=== PATIENT | female | born 1960 | race African-American/Black ===

== ENCOUNTER 2017-10-14 09:01 | Emergency (ER) | payer OTHER ==
[2017-10-14] MEDS ORDERED: SODIUM CHLORIDE 0.9% 2,000 ML IV STA (09:13)
[2017-10-14] MEDS ORDERED: KETOROLAC 30 MG/ML 1 ML VIAL IVP STA (09:13)
[2017-10-14] MEDS ORDERED: ONDANSETRON 4 MG/2 ML VIAL IVP STA (09:13)
--- NOTE | 2017-10-14 09:17 | ED ---
Abdominal Pain HPI - General Chief Complaint: Abdominal Pain Stated Complaint: abd pain; vomiting Time Seen by Provider: 10/14/17 09:09 Source: patient, RN notes reviewed Mode of arrival: wheelchair Limitations: no limitations - History of Present Illness Initial Comments: This is a 57-year-old female presents emergency Department chief complaint of abdominal pain, nausea vomiting diarrhea. Patient states symptoms started around 12 AM this morning. Patient states that she has diffuse abdominal pain with associated nausea vomiting or diarrhea. She denies any fevers or chills. Denies chest pain, shortness of breath, back pain, dysuria, hematuria. Patient states her diarrhea is watery. Denies any melena or hematochezia. She states her emesis is mostly bile at this time. No sick contacts. - Related Data Previous Rx's Medication Instructions Recorded Dicyclomine [Bentyl] 20 mg PO TID #30 tablet 10/14/17 Ibuprofen [Motrin] 600 mg PO Q8HR PRN #30 tab 10/14/17 Ondansetron Odt [Zofran Odt] 4 mg PO Q8HR PRN #10 tab 10/14/17 Allergies Allergy/AdvReac Type Severity Reaction Status Date / Time Penicillins Allergy Rash/Hives Verified 10/14/17 09:08 Sulfa (Sulfonamide Allergy Rash/Hives Verified 10/14/17 09:08 Antibiotics) Review of Systems ROS Statement: Those systems with pertinent positive or pertinent negative responses have been documented in the HPI. ROS Other: All systems not noted in ROS Statement are negative. Past Medical History Past Medical History: Diabetes Mellitus, Hypertension History of Any Multi-Drug Resistant Organisms: None Reported Past Surgical History: Breast Surgery, Hysterectomy Past Psychological History: No Psychological Hx Reported Smoking Status: Never smoker Past Alcohol Use History: None Reported Past Drug Use History: None Reported General Exam Limitations: no limitations General appearance: alert, in no apparent distress Head exam: Present: atraumatic, normocephalic, normal inspection Eye exam: Present: normal appearance, PERRL, EOMI. Absent: scleral icterus, conjunctival injection, periorbital swelling Respiratory exam: Present: normal lung sounds bilaterally. Absent: respiratory distress, wheezes, rales, rhonchi, stridor Cardiovascular Exam: Present: regular rate, normal rhythm, normal heart sounds. Absent: systolic murmur, diastolic murmur, rubs, gallop, clicks GI/Abdominal exam: Present: soft, tenderness, normal bowel sounds. Absent: distended, guarding, rebound, rigid Back exam: Absent: CVA tenderness (R), CVA tenderness (L) Skin exam: Present: warm, dry, intact, normal color. Absent: rash Course Vital Signs 10/14/17 09:05 Temperature 97.2 F L Pulse Rate 85 Respiratory 18 Rate Blood Pressure 151/82 O2 Sat by Pulse 99 Oximetry Medical Decision Making - Medical Decision Making 57-year-old female presented from for nausea vomiting diarrhea. Patient did have mildly elevated lactic acid minimal gap at this time. Patient's related to dehydration. She was given 2 L of fluid she does feel improved she does have some mild residual pain states is very minimal. CT was performed that shows evidence of enteritis no obvious obstruction or diverticulitis. There is evidence of cholelithiasis but normal liver enzymes. Patient will be discharged at this time with Bentyl and Zofran. Return parameters were discussed. - Lab Data Result diagrams: 10/14/17 09:13 10/14/17 09:13 Lab Results 10/14/17 10/14/17 10/14/17 Range/Units 09:13 09:13 09:13 WBC 5.7 (3.8-10.6) k/uL RBC 4.95 (3.80-5.40) m/uL Hgb 13.7 (11.4-16.0) gm/dL Hct 41.0 (34.0-46.0) % MCV 82.9 (80.0-100.0) fL MCH 27.7 (25.0-35.0) pg MCHC 33.4 (31.0-37.0) g/dL RDW 13.7 (11.5-15.5) % Plt Count 249 (150-450) k/uL Neutrophils % 79 % Lymphocytes % 17 % Monocytes % 3 % Eosinophils % 1 % Basophils % 0 % Neutrophils # 4.5 (1.3-7.7) k/uL Lymphocytes # 0.9 L (1.0-4.8) k/uL Monocytes # 0.1 (0-1.0) k/uL Eosinophils # 0.1 (0-0.7) k/uL Basophils # 0.0 (0-0.2) k/uL Sodium 139 (137-145) mmol/L Potassium 4.2 (3.5-5.1) mmol/L Chloride 105 (98-107) mmol/L Carbon Dioxide 19 L (22-30) mmol/L Anion Gap 15 mmol/L BUN 12 (7-17) mg/dL Creatinine 0.60 (0.52-1.04) mg/dL Est GFR (CKD-EPI)AfAm >90 (>60 ml/min/1.73 sqM) Est GFR (CKD-EPI)NonAf >90 (>60 ml/min/1.73 sqM) Glucose 221 H (74-99) mg/dL Plasma Lactic Acid Mckay 3.4 H* (0.7-2.0) mmol/L Calcium 10.1 (8.4-10.2) mg/dL Total Bilirubin 0.4 (0.2-1.3) mg/dL AST 18 (14-36) U/L ALT 17 (9-52) U/L Alkaline Phosphatase 105 (38-126) U/L Total Protein 7.3 (6.3-8.2) g/dL Albumin 4.3 (3.5-5.0) g/dL Amylase 91 (30-110) U/L Lipase 136 (23-300) U/L Urine Color Urine Appearance (Clear) Urine pH (5.0-8.0) Ur Specific [place] (1.001-1.035) Urine Protein (Negative) Urine Glucose (UA) (Negative) Urine Ketones (Negative) Urine Blood (Negative) Urine Nitrite (Negative) Urine Bilirubin (Negative) Urine Urobilinogen (<2.0) mg/dL Ur Leukocyte Esterase (Negative) Urine RBC (0-5) /hpf Urine WBC (0-5) /hpf Ur Squamous Epith Cells (0-4) /hpf Amorphous Sediment (None) /hpf Urine Bacteria (None) /hpf Urine Mucus (None) /hpf Acetone, Qual Negative (Negative) 10/14/17 Range/Units 10:20 WBC (3.8-10.6) k/uL RBC (3.80-5.40) m/uL Hgb (11.4-16.0) gm/dL Hct (34.0-46.0) % MCV (80.0-100.0) fL MCH (25.0-35.0) pg MCHC (31.0-37.0) g/dL RDW (11.5-15.5) % Plt Count (150-450) k/uL Neutrophils % % Lymphocytes % % Monocytes % % Eosinophils % % Basophils % % Neutrophils # (1.3-7.7) k/uL Lymphocytes # (1.0-4.8) k/uL Monocytes # (0-1.0) k/uL Eosinophils # (0-0.7) k/uL Basophils # (0-0.2) k/uL Sodium (137-145) mmol/L Potassium (3.5-5.1) mmol/L Chloride (98-107) mmol/L Carbon Dioxide (22-30) mmol/L Anion Gap mmol/L BUN (7-17) mg/dL Creatinine (0.52-1.04) mg/dL Est GFR (CKD-EPI)AfAm (>60 ml/min/1.73 sqM) Est GFR (CKD-EPI)NonAf (>60 ml/min/1.73 sqM) Glucose (74-99) mg/dL Plasma Lactic Acid Mckay (0.7-2.0) mmol/L Calcium (8.4-10.2) mg/dL Total Bilirubin (0.2-1.3) mg/dL AST (14-36) U/L ALT (9-52) U/L Alkaline Phosphatase (38-126) U/L Total Protein (6.3-8.2) g/dL Albumin (3.5-5.0) g/dL Amylase (30-110) U/L Lipase (23-300) U/L Urine Color Light Yellow Urine Appearance Cloudy H (Clear) Urine pH 8.5 H (5.0-8.0) Ur Specific [place] 1.011 (1.001-1.035) Urine Protein Negative (Negative) Urine Glucose (UA) 4+ H (Negative) Urine Ketones 1+ H (Negative) Urine Blood Negative (Negative) Urine Nitrite Negative (Negative) Urine Bilirubin Negative (Negative) Urine Urobilinogen <2.0 (<2.0) mg/dL Ur Leukocyte Esterase Small H (Negative) Urine RBC <1 (0-5) /hpf Urine WBC 2 (0-5) /hpf Ur Squamous Epith Cells <1 (0-4) /hpf Amorphous Sediment Occasional H (None) /hpf Urine Bacteria Rare H (None) /hpf Urine Mucus Rare H (None) /hpf Acetone, Qual (Negative) Disposition Clinical Impression: Enteritis, Cholelithiasis Disposition: HOME SELF-CARE Condition: Stable Instructions: Enteritis (ED) Additional Instructions: Please return to the Emergency Department if symptoms worsen or any other concerns. Prescriptions: Dicyclomine [Bentyl] 20 mg PO TID #30 tablet Ibuprofen [Motrin] 600 mg PO Q8HR PRN #30 tab PRN Reason: Pain Ondansetron Odt [Zofran Odt] 4 mg PO Q8HR PRN #10 tab PRN Reason: Nausea Referrals: Esthela Herring MD [STAFF PHYSICIAN] - 1-2 days Time of Disposition: 11:20
[2017-10-14 09:38] LABS: Basophils % (A) 0 %; Eosinophils # (A) 0.1 k/uL (0-0.7); Eosinophils % (A) 1 %; HGB 13.7 gm/dL (11.4-16.0); Lymphocytes # (A) 0.9 k/uL (1.0-4.8); Lymphocytes % (A) 17 %; MCH 27.7 pg (25.0-35.0); MCHC 33.4 g/dL (31.0-37.0); MCV 82.9 fL (80.0-100.0); Mean Platelet Volume 7.6; Monocytes # (A) 0.1 k/uL (0-1.0); Monocytes % (A) 3 %; Neutrophils # (A) 4.5 k/uL (1.3-7.7); Neutrophils % (A) 79 %; Platelet Count 249 k/uL (150-450); RBC 4.95 m/uL (3.80-5.40); RDW 13.7 % (11.5-15.5); WBC 5.7 k/uL (3.8-10.6)
[2017-10-14 09:40] LABS: ALT 17 U/L (9-52); AST 18 U/L (14-36); Albumin 4.3 g/dL (3.5-5.0); Alkaline Phosphatase 105 U/L (38-126); Amylase 91 U/L (30-110); Anion Gap 15 mmol/L; Blood Urea Nitrogen 12 mg/dL (7-17); Calcium 10.1 mg/dL (8.4-10.2); Carbon Dioxide 19 mmol/L (22-30); Chloride 105 mmol/L (98-107); Glucose 221 mg/dL (74-99); Lipase 136 U/L (23-300); Potassium 4.2 mmol/L (3.5-5.1); Sodium 139 mmol/L (137-145); Total Bilirubin 0.4 mg/dL (0.2-1.3); Total Protein 7.3 g/dL (6.3-8.2)
[2017-10-14] MEDS ORDERED: MORPHINE SULFATE 4MG/4ML SYRG IVP ONE (09:55)
[2017-10-14] MEDS ORDERED: RX INFO: IV CONTRAST WAS GIVEN 1 EACH MISC MISCELLANE PRN (09:55)
--- NOTE | 2017-10-14 10:15 | XR ---
EXAMINATION TYPE: XR KUB , ONE VIEW DATE OF EXAM ORDERED: 10/14/2017 HISTORY: abdominal pain. COMPARISON: Previous study dated 01/20/2010. FINDINGS: Lung bases are clear. Within the abdomen, there is a minimally distended air-filled loops of small bowel in the left upper quadrant. There are scattered air-fluid levels. There is no evidence of obstruction or free air. Ther e are phleboliths within the pelvis. IMPRESSION: FINDINGS SUGGESTIVE OF LOCALIZED ILEUS LEFT UPPER QUADRANT.
[2017-10-14 10:35] LABS: Amorphous Sediment,Urine Occasional /hpf; Appearance,Urine Cloudy (Clear); Bacteria,Urine Rare /hpf; Bilirubin,Urine Negative (Negative); Blood,Urine Negative (Negative); Color,Urine Light Yellow; Glucose,Urine (UA) 4+ (Negative); Ketones,Urine 1+ (Negative); Leukocyte Esterase,Urine Small (Negative); Mucus,Urine Rare /hpf; Nitrite,Urine Negative (Negative); PH, Urine 8.5 (5.0-8.0); Protein,Urine Negative (Negative); RBC,Urine <1 /hpf (0-5); Specific Gravity,Urine 1.011 (1.001-1.035); Squamous Epithelial Cell,Urine <1 /hpf (0-4); Urobilinogen,Urine <2.0 mg/dL (<2.0); WBC,Urine 2 /hpf (0-5)
--- NOTE | 2017-10-14 10:58 | CT ---
EXAMINATION TYPE: CT abdomen pelvis w con DATE OF EXAM: 10/14/2017 REFERENCE: NONE HISTORY: Pain HISTORY: LLQ pain with nausea and diarrhea today REFERENCE: NONE CT DLP: 707 mGy Automated exposure control for dose reduction was used. TECHNIQUE: Helical acquisition through the abdomen and pelvis was obtained following the oral ingesti on of without Oral Contrast and following intravenous administration of 100 mL of Isovue 300. The blaise a was reformatted in axial, coronal and sagittal projections. FINDINGS: Visualized portions of the lungs are clear. There is no pleural or pericardial fluid. The heart is not enlarged. Within the abdomen. There are gallstones within the gallbladder. Liver and spleen are normal. There is a small hiatal hernia. Both adrenal glands appear normal. Both kidneys demonstrate function and appear morphologically normal. Pancreatic duct is mildly prominent measuring 2.6 mm. The pancreas appears otherwise normal. There is no significant retroperitoneal, iliac or inguinal adenopathy. The bladder is unremarkable. The uterus and ovaries are not visualized. There are scattered diverticula in the sigmoid region without radiographic evidence of diverticulitis . Most of the left side of the colon is collapsed making assessment of the colonic wall difficult. The appendix is normal. Proximal small bowel loops are prominent. Distal small bowel loops are normal in caliber. There is no significant free fluid or free air. No bony lesion is seen. IMPRESSION: 1. PROMINENCE OF THE PROXIMAL SMALL BOWEL WITHOUT EVIDENCE OF OBSTRUCTION OR REFLECT ENTERITIS. 2. CHOLELITHIASIS. 3. SMALL HIATAL HERNIA. 4. MINIMAL, UNCOMPLICATED DIVERTICULOSIS OF THE LEFT SIDE OF THE COLON. 5. COLLAPSE OF MUCH OF THE LEFT SIDE OF THE COLON MAKES IT DIFFICULT TO ASSESS COLONIC WALL. PLEASE C ORRELATE CLINICALLY TO EXCLUDE COLITIS.
[2017-10-14] MEDS ORDERED: FAMOTIDINE 20 MG/2 ML VIAL IV STA (11:12)
[2017-10-14] MEDS ORDERED: DICYCLOMINE 10 MG/ML 2 ML AMP IM STA (11:12)
[2017-10-14 11:20] VITALS: BP 157/79; PULSE 75; RESP 16
[2017-10-14 12:03] VITALS: TEMP 98.4
== END 2017-10-14 12:03 | disposition home or self-care (01) ==
LOC: EC 09:01
DX: K52.9 Noninfective gastroenteritis and colitis, unspecified (principal); K80.20 Calculus of gallbladder without cholecystitis without obstruction; E86.0 Dehydration; Z88.0 Allergy status to penicillin; Z88.2 Allergy status to sulfonamides
CPT/HCPCS: 36415; 80053; 82150; 82009; 83605; 83690; 85025; 81001; 74018; 74177; 99284; 96374; 96375 ×3; 96361 ×2; 96372; J0500; J2405; J1885; Q9967; J2270

== ENCOUNTER 2017-10-16 20:54 | Inpatient (IN) | payer OTHER ==
[2017-10-16] MEDS ORDERED: SODIUM CHLORIDE 0.9% 2,000 ML IV STA (22:12)
[2017-10-16] MEDS ORDERED: RX INFO: IV CONTRAST WAS GIVEN 1 EACH MISC MISCELLANE PRN (22:13)
[2017-10-16] MEDS ORDERED: IOPAMIDOL-300 CONTRAST 30 ML VIAL (ORAL USE) PO PRN (22:13)
[2017-10-16] MEDS ORDERED: ONDANSETRON 4 MG/2 ML VIAL IVP STA (22:31)
[2017-10-16] MEDS ORDERED: FAMOTIDINE 20 MG/2 ML VIAL IV STA (22:31)
--- NOTE | 2017-10-16 22:37 | ED ---
Abdominal Pain HPI - General Chief Complaint: Abdominal Pain Stated Complaint: revisit Time Seen by Provider: 10/16/17 21:57 Source: patient, family Mode of arrival: ambulatory Limitations: no limitations - History of Present Illness Initial Comments: Patient presents with nausea, vomiting, abdominal pain, diarrhea. She was seen in the ER 2 days ago for the same symptoms. Patient states she's had approximately 4-5 days of vomiting and diarrhea. Patient states the diarrhea and vomiting have decreased, states she only vomited once today. Patient states she still has "discomfort" in the left side of her abdomen. Denies blood in stool or vomit. Patient states she's had decreased appetite. Denies fevers, chills. Denies URI symptoms, cough. Patient states she has a history of hysterectomy, denies other abdominal surgeries. Patient states she was prescribed Zofran and Bentyl, however she has not taken any medications, states she did not want to take them all her stomach was upset, despite the fact that Zofran ODT. Patient family is main concern today is that she may be dehydrated , states she has not been eating or drinking much, still feels nauseated. CAT scan on the showed prominence of the small bowel without evidence of obstruction, showed uncomplicated diverticulosis, showed possible colitis of left sided of colon, difficult to assess - Related Data Previous Rx's Medication Instructions Recorded Dicyclomine [Bentyl] 20 mg PO TID #30 tablet 10/14/17 Ibuprofen [Motrin] 600 mg PO Q8HR PRN #30 tab 10/14/17 Ondansetron Odt [Zofran Odt] 4 mg PO Q8HR PRN #10 tab 10/14/17 Allergies Allergy/AdvReac Type Severity Reaction Status Date / Time Penicillins Allergy Rash/Hives Verified 10/16/17 22:00 Sulfa (Sulfonamide Allergy Rash/Hives Verified 10/16/17 22:00 Antibiotics) Review of Systems ROS Statement: Those systems with pertinent positive or pertinent negative responses have been documented in the HPI. ROS Other: All systems not noted in ROS Statement are negative. Constitutional: Reports: other (Decreased appetite). Denies: fever, chills Eyes: Denies: vision change ENT: Denies: throat pain, congestion Respiratory: Denies: cough, dyspnea Cardiovascular: Denies: chest pain, palpitations Endocrine: Reports: fatigue Gastrointestinal: Reports: abdominal pain, nausea, vomiting, diarrhea. Denies: constipation, hematemesis, melena, hematochezia Genitourinary: Denies: urgency, dysuria, frequency, hematuria, discharge Musculoskeletal: Denies: back pain, myalgia Skin: Denies: rash, change in color Neurological: Denies: headache, confusion Past Medical History Past Medical History: Diabetes Mellitus, Hypertension History of Any Multi-Drug Resistant Organisms: None Reported Past Surgical History: Breast Surgery, Hysterectomy Past Psychological History: No Psychological Hx Reported Smoking Status: Never smoker Past Alcohol Use History: None Reported Past Drug Use History: None Reported General Exam - General Exam Comments Initial Comments: Sitting up in bed. Appears mildly fatigued. Conversing normally. Calm, pleasant. Limitations: no limitations General appearance: alert, in no apparent distress Head exam: Present: atraumatic, normocephalic Eye exam: Present: normal appearance, PERRL, EOMI ENT exam: Present: mucous membranes moist Neck exam: Present: normal inspection Respiratory exam: Present: normal lung sounds bilaterally. Absent: respiratory distress, wheezes, rales, rhonchi, stridor Cardiovascular Exam: Present: regular rate, normal rhythm GI/Abdominal exam: Present: soft, tenderness, normal bowel sounds, other (Mild tenderness palpation epigastric and left upper quadrant.). Absent: distended, guarding, rebound, rigid Extremities exam: Present: normal inspection Neurological exam: Present: alert, oriented X3 Psychiatric exam: Present: normal affect, normal mood Skin exam: Present: warm, dry, intact, normal color. Absent: rash, cyanosis, diaphoretic Course Vital Signs 10/16/17 10/16/17 20:58 23:07 Temperature 97.8 F Pulse Rate 82 73 Respiratory 20 20 Rate Blood Pressure 195/85 192/88 O2 Sat by Pulse 97 98 Oximetry Medical Decision Making - Medical Decision Making With elevated lactic acid on previous visit, patient with inconclusive results on computed tomography scan, patient family agree to repeat CT. Will give oral contrast. CAT scan shows extensive dilated small bowel consistent with distal mechanical small bowel obstruction Lactic acid within normal range. Blood cell count within normal range Patient family updated with results and plan for admission. Pain and nausea control at this time Spoke with Dr. Shepherd, updated with patient condition results, request NG tube, consult to on-call general surgeon. Consult placed - Lab Data Result diagrams: 10/16/17 22:25 10/16/17 22:25 Lab Results 10/16/17 10/16/17 10/16/17 Range/Units 22:25 22:25 22:25 WBC 7.4 (3.8-10.6) k/uL RBC 5.29 (3.80-5.40) m/uL Hgb 15.1 (11.4-16.0) gm/dL Hct 42.8 (34.0-46.0) % MCV 80.9 (80.0-100.0) fL MCH 28.5 (25.0-35.0) pg MCHC 35.2 (31.0-37.0) g/dL RDW 13.3 (11.5-15.5) % Plt Count 275 (150-450) k/uL Neutrophils % 71 % Lymphocytes % 20 % Monocytes % 6 % Eosinophils % 2 % Basophils % 0 % Neutrophils # 5.3 (1.3-7.7) k/uL Lymphocytes # 1.5 (1.0-4.8) k/uL Monocytes # 0.4 (0-1.0) k/uL Eosinophils # 0.1 (0-0.7) k/uL Basophils # 0.0 (0-0.2) k/uL Sodium 139 (137-145) mmol/L Potassium 4.0 (3.5-5.1) mmol/L Chloride 101 (98-107) mmol/L Carbon Dioxide 22 (22-30) mmol/L Anion Gap 16 mmol/L BUN 31 H (7-17) mg/dL Creatinine 0.80 (0.52-1.04) mg/dL Est GFR (CKD-EPI)AfAm >90 (>60 ml/min/1.73 sqM) Est GFR (CKD-EPI)NonAf 81 (>60 ml/min/1.73 sqM) Glucose 153 H (74-99) mg/dL Plasma Lactic Acid Mckay 1.5 (0.7-2.0) mmol/L Calcium 11.0 H (8.4-10.2) mg/dL Total Bilirubin 1.1 (0.2-1.3) mg/dL Conjugated Bilirubin 0.0 (0.0-0.3) mg/dL Unconjugated Bilirubin 0.8 (0.0-1.1) mg/dL Delta Bilirubin 0.3 H (0.0-0.2) mg/dL AST 17 (14-36) U/L ALT 22 (9-52) U/L Alkaline Phosphatase 87 (38-126) U/L Total Protein 7.8 (6.3-8.2) g/dL Albumin 4.5 (3.5-5.0) g/dL Lipase 78 (23-300) U/L Disposition Clinical Impression: Small bowel obstruction Disposition: ADMITTED IP TO THIS HOSP Condition: Good Is patient prescribed a controlled substance at discharge?: No Referrals: None,Stated [Primary Care Provider] - 1-2 days
[2017-10-16 22:38] LABS: Basophils % (A) 0 %; Eosinophils # (A) 0.1 k/uL (0-0.7); Eosinophils % (A) 2 %; HCT 42.8 % (34.0-46.0); HGB 15.1 gm/dL (11.4-16.0); Lymphocytes # (A) 1.5 k/uL (1.0-4.8); Lymphocytes % (A) 20 %; MCH 28.5 pg (25.0-35.0); MCHC 35.2 g/dL (31.0-37.0); MCV 80.9 fL (80.0-100.0); Mean Platelet Volume 6.9; Monocytes # (A) 0.4 k/uL (0-1.0); Monocytes % (A) 6 %; Neutrophils # (A) 5.3 k/uL (1.3-7.7); Neutrophils % (A) 71 %; Platelet Count 275 k/uL (150-450); RBC 5.29 m/uL (3.80-5.40); RDW 13.3 % (11.5-15.5); WBC 7.4 k/uL (3.8-10.6)
[2017-10-16 22:48] LABS: ALT 22 U/L (9-52); AST 17 U/L (14-36); Albumin 4.5 g/dL (3.5-5.0); Alkaline Phosphatase 87 U/L (38-126); Anion Gap 16 mmol/L; Bilirubin, Delta 0.3 mg/dL (0.0-0.2); Bilirubin,Unconjugated 0.8 mg/dL (0.0-1.1); Blood Urea Nitrogen 31 mg/dL (7-17); Carbon Dioxide 22 mmol/L (22-30); Chloride 101 mmol/L (98-107); Glucose 153 mg/dL (74-99); Lipase 78 U/L (23-300); Sodium 139 mmol/L (137-145); Total Bilirubin 1.1 mg/dL (0.2-1.3); Total Protein 7.8 g/dL (6.3-8.2)
--- NOTE | 2017-10-17 00:24 | CT ---
EXAMINATION TYPE: CT abdomen pelvis w con DATE OF EXAM: 10/17/2017 COMPARISON: 10/14/2017 HISTORY: pain CT DLP: 426.80 mGycm Automated exposure control for dose reduction was used. TECHNIQUE: Helical acquisition of images was performed from the lung bases through the pelvis. CONTRAST: Performed with Oral Contrast and with IV Contrast, patient injected with 100 mL of Isovue 300. FINDINGS: Lung bases are clear of consolidation. There is no pleural effusion. Liver shows no focal defect. Davion e ducts are not dilated. There is a probable 1 cm cholesterol gallstone. Gallbladder is not dilated. Spleen and pancreas appear normal. There is no adrenal mass. Kidneys show satisfactory contrast opacification. There is no hydronephrosi s. There is no retroperitoneal adenopathy. There are multiple dilated loops of small bowel with multiple fluid levels. Small bowel measures up t o 3.5 cm. The transition point is in the distal ileum. The appendix appears normal. Terminal ileum is not dilated. The exact transition point is not identified. Large bowel appears normal. Bladder distends smoothly. I see no pelvic mass. The bony structures are intact. IMPRESSION: EXTENSIVE DILATED SMALL BOWEL CONSISTENT WITH DISTAL MECHANICAL SMALL BOWEL OBSTRUCTION THAT IS WORSE THAN RECENT CT SCAN. NORMAL APPENDIX. SINGLE CHOLESTEROL GALLSTONE.
[2017-10-17] MEDS ORDERED: SODIUM CHLORIDE 0.9% 1,000 ML IV STA (00:53)
[2017-10-17] MEDS ORDERED: NALOXONE 0.4 MG/ML 1 ML VIAL IV PRN (00:59)
[2017-10-17] MEDS ORDERED: ONDANSETRON 4 MG/2 ML VIAL IVP PRN (00:59)
[2017-10-17 01:16] LABS: Appearance,Urine Cloudy (Clear); Bilirubin,Urine Negative (Negative); Blood,Urine Small (Negative); Color,Urine Light Yellow; Glucose,Urine (UA) Trace (Negative); Ketones,Urine 2+ (Negative); Leukocyte Esterase,Urine Large (Negative); Mucus,Urine Rare /hpf; Nitrite,Urine Negative (Negative); Protein,Urine Trace (Negative); RBC,Urine 12 /hpf (0-5); Squamous Epithelial Cell,Urine 7 /hpf (0-4); Urobilinogen,Urine <2.0 mg/dL (<2.0); WBC,Urine 24 /hpf (0-5)
[2017-10-17 01:18] LABS: Specific Gravity,Urine 1.049 (1.001-1.035)
[2017-10-17 02:34] VITALS: BMI 20.9
[2017-10-17] MEDS ORDERED: LORazepam 2 MG/ML INJ IV STA (03:39)
[2017-10-17] MEDS ORDERED: MORPHINE SULFATE 4MG/4ML SYRG IVP PRN (03:41)
[2017-10-17] MEDS ORDERED: ENALAPRILAT 1.25 MG/ML 1 ML VIAL IVP PRN (09:55)
--- NOTE | 2017-10-17 10:02 | P.HPIM ---
History of Present Illness H&P Date: 10/17/17 Chief Complaint: Intractable nausea and abdominal pain The patient is a 57-year-old -[place] female with a past smoker history of diet-controlled type 2 diabetes, essential hypertension who initially presented to the ER on 08/16 with complaints of abdominal pain nausea vomiting and diarrhea that began approximately 4-5 days ago, she was seen in the ER at that time and sent home with a diagnosis of enteritis. At that time she had a CT abdomen and pelvis that Suggested enteritis, cholelithiasis since then the patient has had no improvement of her symptoms having several episodes of nonbloody bilious emesis, decreased appetite, unable to tolerate food or water. She denies any diarrhea at present, she denies any fevers chills or night sweats, she does have a remote history of hysterectomy and expiratory laparotomy. Repeat CAT scan done today showed extensive dilated small bowel consistent with distal mechanical small bowel obstruction that is worse than her recent computed tomography scan. In the ER the patient was started on IV morphine, Zofran, PPI therapy and placed on IV fluids, with NG to low intermittent suctioning ordered and recommended for admission Review of Systems All other 12 point review systems negative except per HPI Past Medical History Past Medical History: Diabetes Mellitus, Hypertension History of Any Multi-Drug Resistant Organisms: None Reported Past Surgical History: Breast Surgery, Hysterectomy Past Psychological History: No Psychological Hx Reported Smoking Status: Never smoker Past Alcohol Use History: None Reported Past Drug Use History: None Reported Medications and Allergies Home Medications Medication Instructions Recorded Confirmed Type Dicyclomine [Bentyl] 20 mg PO TID #30 tablet 10/14/17 10/16/17 Rx Ibuprofen [Motrin] 600 mg PO Q8HR PRN #30 tab 10/14/17 10/16/17 Rx Ondansetron Odt [Zofran Odt] 4 mg PO Q8HR PRN #10 tab 10/14/17 10/16/17 Rx Allergies Allergy/AdvReac Type Severity Reaction Status Date / Time Penicillins Allergy Rash/Hives Verified 10/16/17 22:00 Sulfa (Sulfonamide Allergy Rash/Hives Verified 10/16/17 22:00 Antibiotics) Physical Exam Vitals: Vital Signs Temp Pulse Pulse Resp BP BP Pulse Ox 10/17/17 08:03 99.0 F 79 20 157/82 95 10/17/17 02:42 98.2 F 70 16 151/87 96 10/17/17 01:53 8 L 20 177/84 95 10/16/17 23:07 73 20 192/88 98 10/16/17 20:58 97.8 F 82 20 195/85 97 Intake and Output 10/16/17 10/17/17 10/17/17 22:59 06:59 14:59 Intake Total 800 Balance 800 Intake: Intake, IV Titration 800 Amount Sodium Chloride 0.9% 1, 800 000 ml @ 100 mls/hr IV . Q10H STA Rx#:[id number] Other: Voiding Method Toilet # Voids 3 1 Weight 48.534 kg 48.534 kg Constitutional: No acute distress, conversant, pleasant Eyes: Anicteric sclerae, moist conjunctiva, no lid-lag, PERRLA, sunken orbit ENMT: NC/AT,Oropharynx clear, no erythema, exudates, NG tube to low intermittent suctioning with bilious output Neck:Supple, FROM, no masses, or JVD, No carotid bruits; No thyromegaly Lungs: Clear to auscultation, Clear to percussion, Normal respiratory effort, no accessory muscle use Cardiovascular: Heart regular in rate and rhythm, No murmurs, gallops, or rubs no peripheral edema Abdominal: Tender to palpation in the middle to left lower quadrant with hypoactive L sounds, no guarding, no rebound or rigidity, No hepatomegaly, No splenomegaly, No palpable mass No abdominal wall hernia noted Skin: Normal temperature, tone, texture, turgor, No induration No subcutaneous nodules, No rash, lesions, No ulcers Extremities:No digital cyanosis No clubbing, Pedal pulses intact and symmetrical Radial pulses intact and symmetrical Normal gait and station, No calf tenderness Psychiatric: Alert and oriented to person, place and time, Appropriate affect Intact judgement Neuro: Muscles Strength 5/5 in all 4 extremities, Sensation to light touch grossly present throughout, Cranial nerves II-XII grossly intact. No focal sensory deficits Results CBC & Chem 7: 10/16/17 22:25 10/16/17 22:25 Labs: Abnormal Lab Results - Last 24 Hours (Table) 10/16/17 10/17/17 Range/Units 22:25 01:06 BUN 31 H (7-17) mg/dL Glucose 153 H (74-99) mg/dL Calcium 11.0 H (8.4-10.2) mg/dL Delta Bilirubin 0.3 H (0.0-0.2) mg/dL Urine Appearance Cloudy H (Clear) Ur Specific [place] 1.049 H (1.001-1.035) Urine Protein Trace H (Negative) Urine Glucose (UA) Trace H (Negative) Urine Ketones 2+ H (Negative) Urine Blood Small H (Negative) Ur Leukocyte Esterase Large H (Negative) Urine RBC 12 H (0-5) /hpf Urine WBC 24 H (0-5) /hpf Ur Squamous Epith Cells 7 H (0-4) /hpf Urine Mucus Rare H (None) /hpf Assessment and Plan (1) Accelerated hypertension Current Visit: Yes Status: Acute Code(s): I10 - ESSENTIAL (PRIMARY) HYPERTENSION SNOMED Code(s): 56415314 (2) Type 2 diabetes mellitus Current Visit: Yes Status: Acute Code(s): E11.9 - TYPE 2 DIABETES MELLITUS WITHOUT COMPLICATIONS SNOMED Code(s): 24604129 (3) Small bowel obstruction Current Visit: Yes Status: Acute Code(s): K56.609 - UNSP INTESTNL OBST, UNSP TO PARTIAL VERSUS COMPLETE OBST SNOMED Code(s): 022743361 (4) Cholelithiasis Current Visit: No Status: Acute Code(s): K80.20 - CALCULUS OF GALLBLADDER W/ O CHOLECYSTITIS W/O OBSTRUCTION SNOMED Code(s): 800597523 (5) Enteritis Current Visit: No Status: Acute Code(s): K52.9 - NONINFECTIVE GASTROENTERITIS AND COLITIS, UNSPECIFIED SNOMED Code(s): 67905956 Plan: The patient is admitted anticipated greater than 2 midnight stay with concern for small bowel obstruction as seen on CT abdomen and pelvis this might be secondary to postviral ileus, we'll initiate conservative management and consult general surgery Stephanie Solo with plans to keep the patient nothing by mouth with NG low to intermittent suctioning with supportive management with Zofran and morphine for nausea and pain respectively. Check right upper quadrant ultrasound to rule out acute cholecystitis as a patient does have cholelithiasis on CT. Continue with hydrating the patient. Noted elevated blood pressure will start IV enalapril when necessary, check A1c and continue to monitor her blood sugars. Patient patient on DVT and GI prophylaxis with SCDs/ Lovenox and Protonix respectively
--- NOTE | 2017-10-17 11:23 | US ---
EXAMINATION TYPE: US abdomen limited DATE OF EXAM: 10/17/2017 COMPARISON: CT abdomen pelvis from yesterday. CLINICAL HISTORY: rule out cholecystitis. Pain not further specified. EXAM MEASUREMENTS: Liver Length: 11.7 cm Gallbladder Wall: 0.3 cm CBD: 0.3 cm Right Kidney: 9.6 x 5.0 x 4.1 cm Severe overlying bowel gas limiting study. Pancreas: Obscured by bowel gas Liver: portions visualized wnl, left lobe obscured by bowel gas Gallbladder: difficult to ascertain whether gallbladder wall is thickened due to extensive overlying bowel, multiple gallstones, there appears to be ff adjacent to gallbladder and in Morrisons pouch, a nd some minimal ascites Evidence for sonographic Maza's sign: no CBD: wnl Right Kidney: No hydronephrosis or masses seen Pancreas is suboptimally evaluated on ultrasound but appeared within normal limits on CT one day mario ier. Visualized liver is heterogeneous with trace perihepatic ascites redemonstrated. No suspicious m ass or ductal dilatation is seen. There is redemonstration of shadowing mobile gallstone in gallbladd er. Gallbladder suboptimally visualized due to shadowing from overlying bowel gas. Visualized portion s show no suspicious gallbladder wall thickening. Some adjacent free fluid is present but similar robert unt of fluid is seen surrounding the liver margin. IMPRESSION: Gallstones without convincing secondary ultrasound evidence for acute cholecystitis. Sma ll amount of pericholecystic fluid correlates with similar amount of surrounding perihepatic ascites. Distal small bowel obstruction noted on recent CT with transition point is more suspicious.
[2017-10-17] MEDS: PANTOPRAZOLE 40 MG/10 ML VIAL IVP SCH ×2 (12:22→20:46)
[2017-10-17 12:51] LABS: Glucose,Whole Blood 113 mg/dL (75-99)
--- NOTE | 2017-10-17 13:03 | P.GSCN ---
History of Present Illness Consult date: 10/17/17 History of present illness: 57-year-old female presented on the day of admission to the emergency room to be evaluated for chief complaint of developing intractable nausea vomiting abdominal pain diarrhea. Patient stated that she was in the emergency room 48 hours prior with the same symptoms. Patient states was discharged given a prescription for Bentyl and Zofran did not get them filled secondary to not being able to keep any fluid down due to nausea. Patient returned to the emergency room and was admitted under the services of the attending with a surgical eval requested. The CAT scan of the abdomen pelvis on the showed prominence of the small bowel without evidence of small bowel obstruction uncomplicated diverticulosis possible colitis of the left side of the colon patient was admitted to the attending. Nasogastric tube placed IV hydration started bowel rest initiated. Patients being seen this morning and states since having the nasogastric tube put down there is a lot less abdominal distention no stool no nausea no vomiting less abdominal pain as morning the patient did undergo an ultrasound of the abdomen report indicated gallstones without convincing ultrasound evidence of an acute cholecystitis. Past surgical history abdominal hysterectomy greater than 10 years prior colonoscopy 8 years prior surveillance no acute findings Past medical history type 2 diabetes non-insulin hypertension Review of Systems - Constitutional Constitutional Comment(s): Essentially unremarkable except as mentioned in the present illness Past Medical History Past Medical History: Diabetes Mellitus, Hypertension History of Any Multi-Drug Resistant Organisms: None Reported Past Surgical History: Breast Surgery, Hysterectomy Past Psychological History: No Psychological Hx Reported Smoking Status: Never smoker Past Alcohol Use History: None Reported Past Drug Use History: None Reported Medications and Allergies Home Medications Medication Instructions Recorded Confirmed Type Dicyclomine [Bentyl] 20 mg PO TID #30 tablet 10/14/17 10/16/17 Rx Ibuprofen [Motrin] 600 mg PO Q8HR PRN #30 tab 10/14/17 10/16/17 Rx Ondansetron Odt [Zofran Odt] 4 mg PO Q8HR PRN #10 tab 10/14/17 10/16/17 Rx Allergies Allergy/AdvReac Type Severity Reaction Status Date / Time Penicillins Allergy Rash/Hives Verified 10/16/17 22:00 Sulfa (Sulfonamide Allergy Rash/Hives Verified 10/16/17 22:00 Antibiotics) Surgical - Exam Vital Signs Temp Pulse Resp BP Pulse Ox 97.8 F 82 20 195/85 97 10/16/17 20:58 10/16/17 20:58 10/16/17 20:58 10/16/17 20:58 10/16/17 20:58 GENERAL APPEARANCE: The patient is alert, oriented, in no acute distress. VITAL SIGNS: Reviewed HEENT: Head is normocephalic and atraumatic. Pupils are equal and reactive. The nares are patent. Oropharynx is clear without lesions. NECK: Supple without lymphadenopathy. Traches midline. HEART: S1, S2. Regular rate and rhythm. Denying chest pain LUNGS: No crackles or wheezes are heard. Adequate air movement bilaterally on room air ABDOMEN: Soft, mild abdominal wall tenderness nasal gastric tube to suction reports less abdominal pain. Hypoactive bowel tones nondistended . No peritoneal signs. No palpable organomegaly or masses. EXTREMITIES: Normal skin color and turgor. No cyanosis, rash, ulceration, clubbing or edema. Radial pedal pulses are 2/4 bilaterally. NEUROLOGICAL: No focal deficits. Strength and sensation are grossly intact. Results - Labs 10/16/17 22:25 10/16/17 22:25 Abnormal Lab Results - Last 24 Hours (Table) 10/16/17 10/17/17 Range/Units 22:25 01:06 BUN 31 H (7-17) mg/dL Glucose 153 H (74-99) mg/dL Calcium 11.0 H (8.4-10.2) mg/dL Delta Bilirubin 0.3 H (0.0-0.2) mg/dL Urine Appearance Cloudy H (Clear) Ur Specific [place] 1.049 H (1.001-1.035) Urine Protein Trace H (Negative) Urine Glucose (UA) Trace H (Negative) Urine Ketones 2+ H (Negative) Urine Blood Small H (Negative) Ur Leukocyte Esterase Large H (Negative) Urine RBC 12 H (0-5) /hpf Urine WBC 24 H (0-5) /hpf Ur Squamous Epith Cells 7 H (0-4) /hpf Urine Mucus Rare H (None) /hpf Diabetes panel 10/16/17 Range/Units 22:25 Sodium 139 (137-145) mmol/L Potassium 4.0 (3.5-5.1) mmol/L Chloride 101 (98-107) mmol/L Carbon Dioxide 22 (22-30) mmol/L BUN 31 H (7-17) mg/dL Creatinine 0.80 (0.52-1.04) mg/dL Glucose 153 H (74-99) mg/dL Calcium 11.0 H (8.4-10.2) mg/dL AST 17 (14-36) U/L ALT 22 (9-52) U/L Alkaline Phosphatase 87 (38-126) U/L Total Protein 7.8 (6.3-8.2) g/dL Albumin 4.5 (3.5-5.0) g/dL Calcium panel 10/16/17 Range/Units 22:25 Calcium 11.0 H (8.4-10.2) mg/dL Albumin 4.5 (3.5-5.0) g/dL Pituitary panel 10/16/17 Range/Units 22:25 Sodium 139 (137-145) mmol/L Potassium 4.0 (3.5-5.1) mmol/L Chloride 101 (98-107) mmol/L Carbon Dioxide 22 (22-30) mmol/L BUN 31 H (7-17) mg/dL Creatinine 0.80 (0.52-1.04) mg/dL Glucose 153 H (74-99) mg/dL Calcium 11.0 H (8.4-10.2) mg/dL Adrenal panel 10/16/17 Range/Units 22:25 Sodium 139 (137-145) mmol/L Potassium 4.0 (3.5-5.1) mmol/L Chloride 101 (98-107) mmol/L Carbon Dioxide 22 (22-30) mmol/L BUN 31 H (7-17) mg/dL Creatinine 0.80 (0.52-1.04) mg/dL Glucose 153 H (74-99) mg/dL Calcium 11.0 H (8.4-10.2) mg/dL Total Bilirubin 1.1 (0.2-1.3) mg/dL AST 17 (14-36) U/L ALT 22 (9-52) U/L Alkaline Phosphatase 87 (38-126) U/L Total Protein 7.8 (6.3-8.2) g/dL Albumin 4.5 (3.5-5.0) g/dL Assessment and Plan Assessment: Impression Present on admission intractable nausea vomiting abdominal pain suspect due to mechanical small bowel obstruction Ultrasound of the abdomen obtained on the show gallstones without convincing sec can Jalil ultrasound evidence of an acute cholecystitis Computed tomography scan abdomen pelvis with contrast report showed extensive dilated small bowel consistent with distal mechanical small bowel obstruction Present on admission accelerated hypertension Type 2 diabetes non-insulin History of abdominal hysterectomy 10 years prior History of surveillant colonoscopy 8 years prior Plan Will obtain abdominal x-ray in the morning if no improvement did discuss with patient will need exploratory laparotomy tomorrow Continue IV fluid for hydration Pain control Continue nasal gastric tube to intermittent suction and monitor response DVT and GI prophylaxis Will follow with you with further surgical recommendations Consult note dictated for Dr. Levine The above impression and plan of care have been discussed and directed by signing physician. Sheyla Shepherd nurse practitioner acting as scribe for signing physician.
[2017-10-17 17:29] LABS: Glucose,Whole Blood 108 mg/dL (75-99)
[2017-10-17 20:32] LABS: Hemoglobin A1C 6.4 % (4.0-6.0)
[2017-10-17] MEDS: SODIUM CHLORIDE 0.9% 1,000 ML IV SCH (20:48)
[2017-10-18 03:13] LABS: Glucose,Whole Blood 95 mg/dL (75-99)
[2017-10-18 07:18] LABS: Glucose,Whole Blood 98 mg/dL (75-99)
[2017-10-18 07:19] LABS: Basophils % (A) 0 %; Eosinophils % (A) 1 %; HCT 41.3 % (34.0-46.0); HGB 13.5 gm/dL (11.4-16.0); Lymphocytes # (A) 1.8 k/uL (1.0-4.8); Lymphocytes % (A) 32 %; MCH 27.6 pg (25.0-35.0); MCHC 32.7 g/dL (31.0-37.0); MCV 84.2 fL (80.0-100.0); Mean Platelet Volume 7.3; Monocytes # (A) 0.4 k/uL (0-1.0); Monocytes % (A) 8 %; Neutrophils # (A) 3.4 k/uL (1.3-7.7); Neutrophils % (A) 59 %; Platelet Count 261 k/uL (150-450); RBC 4.91 m/uL (3.80-5.40); RDW 13.5 % (11.5-15.5); WBC 5.8 k/uL (3.8-10.6)
[2017-10-18] MEDS: SODIUM CHLORIDE 0.9% 1,000 ML IV SCH ×3 (07:57→21:00)
[2017-10-18 07:58] LABS: ALT 22 U/L (9-52); AST 15 U/L (14-36); Albumin 3.3 g/dL (3.5-5.0); Alkaline Phosphatase 66 U/L (38-126); Anion Gap 12 mmol/L; Blood Urea Nitrogen 14 mg/dL (7-17); Calcium 9.2 mg/dL (8.4-10.2); Carbon Dioxide 21 mmol/L (22-30); Chloride 107 mmol/L (98-107); Glucose 99 mg/dL (74-99); Potassium 3.6 mmol/L (3.5-5.1); Sodium 140 mmol/L (137-145)
[2017-10-18] MEDS: PANTOPRAZOLE 40 MG/10 ML VIAL IVP SCH ×2 (08:43→20:09)
[2017-10-18] MEDS: ENOXAPARIN 40 MG/0.4 ML SYRINGE SQ SCH (08:44)
--- NOTE | 2017-10-18 09:19 | XR ---
EXAMINATION TYPE: XR abdomen 2V DATE OF EXAM: 10/18/2017 COMPARISON: 10/14/2017 INDICATION: Small bowel obstruction TECHNIQUE: Single view abdomen upright view FINDINGS: There are scattered air-fluid levels within the midabdomen. Some small bowel loops with air-fluid lev els are present. Differential air-fluid levels are not evident. No free air is present. Nasogastric t ube is present with the tip in the right upper quadrant of the abdomen. Colonic bowel gas is present. Psoas margin is not well visualized. No organomegaly is present. IMPRESSION: 1. Multiple scattered air-fluid levels within small bowel loops. Correlate for ileus and partial smal l bowel obstruction. Some areas present within the colon.
--- NOTE | 2017-10-18 10:30 | P.PN ---
Subjective Progress Note Date: 10/18/17 57-year-old female seen at the bedside. Dr. Levine did review the plan of care with the patient and the patient's spouse. Nasogastric tube in place with 200 out for the last 12 hours. Abdominal tenderness improved less distention. Reports no nausea vomiting. States is not passing gas no stool. X-ray was reviewed this morning by Dr. Ny slight improvement. Patient is being treated for colitis and partial small bowel obstruction. Objective - Vital Signs Vital signs: Vital Signs Temp 97.9 F 10/18/17 07:45 Pulse 66 10/18/17 07:45 Resp 16 10/18/17 07:45 BP 148/72 10/18/17 07:45 Pulse Ox 97 10/18/17 07:45 Intake & Output 10/17/17 10/18/17 10/18/17 18:59 06:59 18:59 Intake Total 800 800 Output Total 200 Balance 600 800 Intake: IV 800 800 Sodium Chloride 0.9% 1, 800 800 000 ml @ 100 mls/hr IV . Q10H STA Rx#:[id number] Output: Gastric Drainage 200 Other: Voiding Method Toilet Toilet # Voids 1 2 - Exam Physical exam 57-year-old female resting in bed appears in no acute distress Lungs adequate air movement bilaterally no wheezing rales or rhonchi Heart S1-S2 audible regular Abdomen nasal gastric tube to suction few hypoactive bowel tones states is not passing gas urinating no difficulty no reports of nausea vomiting mild tenderness to the abdominal wall improvement Extremities no edema noted - Labs CBC & Chem 7: 10/18/17 06:53 10/18/17 06:53 Labs: Abnormal Lab Results - Last 24 Hours (Table) 10/16/17 10/17/17 10/17/17 Range/Units 17:41 12:48 17:26 Carbon Dioxide (22-30) mmol/L POC Glucose (mg/dL) 113 H 108 H (75-99) mg/dL Hemoglobin A1c 6.4 H (4.0-6.0) % Total Protein (6.3-8.2) g/dL Albumin (3.5-5.0) g/dL 10/18/17 Range/Units 06:53 Carbon Dioxide 21 L (22-30) mmol/L POC Glucose (mg/dL) (75-99) mg/dL Hemoglobin A1c (4.0-6.0) % Total Protein 6.0 L (6.3-8.2) g/dL Albumin 3.3 L (3.5-5.0) g/dL Assessment and Plan Assessment: Impression Present on admission intractable nausea vomiting abdominal pain suspect due to mechanical small bowel obstruction Ultrasound of the abdomen obtained on the show gallstones without convincing sec can Pound ultrasound evidence of an acute cholecystitis Computed tomography scan abdomen pelvis with contrast report showed extensive dilated small bowel consistent with distal mechanical small bowel obstruction Present on admission accelerated hypertension Type 2 diabetes non-insulin History of abdominal hysterectomy 10 years prior History of surveillant colonoscopy 8 years prior Plan Will obtain abdominal x-ray in the morning if no improvement did discuss with patient will need exploratory laparotomy tomorrow Continue IV fluid for hydration Pain control Continue nasal gastric tube to intermittent suction and monitor response DVT and GI prophylaxis Will follow with you with further surgical recommendations Increase activity Fleets enema now note dictated for Dr. Levine The above impression and plan of care have been discussed and directed by signing physician. Sheyla Shepherd nurse practitioner acting as scribe for signing physician.
[2017-10-18] MEDS ORDERED: NA PHOS,M-B/NA PHOS,DI-BA 133 ML ENEMA RECTAL ONE (10:53)
--- NOTE | 2017-10-18 11:34 | P.PN ---
Subjective Progress Note Date: 10/18/17 Principal diagnosis: Bowel obstruction. Doing well, NG tube in place. Patient denied having any abdominal pain. No nausea or vomiting. Not passing gas or stool. Objective - Vital Signs Vital signs: Vital Signs Temp 97.9 F 10/18/17 07:45 Pulse 66 10/18/17 07:45 Resp 16 10/18/17 07:45 BP 148/72 10/18/17 07:45 Pulse Ox 97 10/18/17 07:45 Intake & Output 10/17/17 10/18/17 10/18/17 18:59 06:59 18:59 Intake Total 800 800 Output Total 200 Balance 600 800 Intake: IV 800 800 Sodium Chloride 0.9% 1, 800 800 000 ml @ 100 mls/hr IV . Q10H STA Rx#:[id number] Output: Gastric Drainage 200 Other: Voiding Method Toilet Toilet # Voids 1 2 - Exam Constitutional: No acute distress, conversant, pleasant Eyes:Anicteric sclerae, moist conjunctiva, no lid-lag, PERRLA, ENMT: NG tube in place, Oropharynx clear, no erythema, exudates Neck: Supple, FROM, no masses, or JVD, No carotid bruits, No thyromegaly Lungs: Clear to auscultation, Clear to percussion, Normal respiratory effort, no accessory muscle use Cardiovascular: Heart regular in rate and rhythm, No murmurs, gallops, or rubs, No peripheral edema Abdominal: Slightly distended, sluggish bowel sounds. Soft, slightly tender all over , no guarding, rebound or rigidity, Normoactive bowel sounds, No hepatomegaly, No splenomegaly, No palpable mass Skin: Normal temperature, tone, texture, turgor, no induration, No subcutaneous nodules, No rash, lesions, No ulcers Extremities: No digital cyanosis, No clubbing, Pedal pulses intact and symmetrical, Radial pulses intact and symmetrical, No calf tenderness Psychiatric: Alert and oriented to person, place and time, appropriate affect, intact judgement Neuro: Muscles Strength 5/5 in all 4 extremities, Sensation to light touch grossly present throughout, Cranial nerves II-XII grossly intact, no focal sensory deficits - Labs CBC & Chem 7: 10/18/17 06:53 10/18/17 06:53 Labs: Abnormal Lab Results - Last 24 Hours (Table) 10/16/17 10/17/17 10/17/17 Range/Units 17:41 12:48 17:26 Carbon Dioxide (22-30) mmol/L POC Glucose (mg/dL) 113 H 108 H (75-99) mg/dL Hemoglobin A1c 6.4 H (4.0-6.0) % Total Protein (6.3-8.2) g/dL Albumin (3.5-5.0) g/dL 10/18/17 Range/Units 06:53 Carbon Dioxide 21 L (22-30) mmol/L POC Glucose (mg/dL) (75-99) mg/dL Hemoglobin A1c (4.0-6.0) % Total Protein 6.0 L (6.3-8.2) g/dL Albumin 3.3 L (3.5-5.0) g/dL Assessment and Plan Plan: # Mechanical small bowel obstruction Continue IV fluid for hydration Pain control Continue nasal gastric tube to intermittent suction and monitor response Surgical service following, plan to increase activity and do a Fleet enema today Serial abdominal x-rays # Essential hypertension, Type 2 diabetes non-insulin A1c is 6.4, likely diabetic--new diagnosis SSI Monitor bp # DVT and GI prophylaxis
[2017-10-18 12:07] LABS: Glucose,Whole Blood 93 mg/dL (75-99)
[2017-10-18] MEDS: INSULIN ASPART 100 UNIT/ML 1 ML 10 ML VIAL SQ SCH ×3 (12:17→22:14)
[2017-10-18] MEDS ORDERED: BISACODYL 10 MG SUPP RECTAL STA (12:44)
[2017-10-18 17:26] LABS: Glucose,Whole Blood 81 mg/dL (75-99)
[2017-10-18 20:13] LABS: Glucose,Whole Blood 86 mg/dL (75-99)
[2017-10-18] MEDS ORDERED: MORPHINE SULFATE 4 MG/ML SYRINGE IV PRN (22:43)
[2017-10-18] MEDS ORDERED: MIDAZOLAM 2 MG/2 ML VIAL IV PRN (22:43)
[2017-10-18] MEDS ORDERED: HYDROmorphone 0.5 MG/0.5 ML SYRINGE IVP PRN (22:43)
[2017-10-18] MEDS ORDERED: ONDANSETRON 4 MG/2 ML VIAL IVP PRN (22:43)
[2017-10-18] MEDS ORDERED: LACTATED RINGERS 1,000 ML IV SCH (22:45)
[2017-10-19 07:13] LABS: Basophils % (A) 1 %; Eosinophils % (A) 1 %; HCT 36.7 % (34.0-46.0); HGB 12.4 gm/dL (11.4-16.0); Lymphocytes # (A) 1.4 k/uL (1.0-4.8); Lymphocytes % (A) 35 %; MCH 27.8 pg (25.0-35.0); MCHC 33.8 g/dL (31.0-37.0); MCV 82.3 fL (80.0-100.0); Mean Platelet Volume 6.9; Monocytes # (A) 0.4 k/uL (0-1.0); Monocytes % (A) 9 %; Neutrophils # (A) 2.1 k/uL (1.3-7.7); Neutrophils % (A) 52 %; Platelet Count 246 k/uL (150-450); RBC 4.47 m/uL (3.80-5.40); RDW 13.1 % (11.5-15.5); WBC 3.9 k/uL (3.8-10.6)
[2017-10-19 07:21] LABS: ALT 41 U/L (9-52); AST 36 U/L (14-36); Albumin 2.9 g/dL (3.5-5.0); Alkaline Phosphatase 52 U/L (38-126); Anion Gap 13 mmol/L; Blood Urea Nitrogen 9 mg/dL (7-17); Calcium 8.7 mg/dL (8.4-10.2); Carbon Dioxide 20 mmol/L (22-30); Chloride 104 mmol/L (98-107); Glucose 63 mg/dL (74-99); Potassium 3.4 mmol/L (3.5-5.1); Sodium 137 mmol/L (137-145); Total Protein 5.2 g/dL (6.3-8.2)
[2017-10-19] MEDS ORDERED: DEXTROSE 50%-WATER 50 ML SYRINGE IVP STA (07:24)
[2017-10-19] MEDS: INSULIN ASPART 100 UNIT/ML 1 ML 10 ML VIAL SQ SCH ×4 (07:31→21:11)
--- NOTE | 2017-10-19 07:35 | XR ---
EXAMINATION TYPE: XR abdomen 2V DATE OF EXAM: 10/19/2017 HISTORY: Pain. Technique: 2 views of the abdomen are submitted. Comparison: 10/18/2017 Findings: NG tube is in place. Again noted are dilated loops of small bowel with air-fluid levels identified. N o significant interval change. Debris is seen within the colon. No evidence for pneumoperitoneum. No mass effects are noted. No renal calcifications are identified. IMPRESSION: 1. Stable features of distal small bowel obstruction. Continued follow-up is advised.
[2017-10-19 07:40] LABS: Glucose,Whole Blood 135 mg/dL (75-99)
[2017-10-19 07:44] LABS: Glucose,Whole Blood 61 mg/dL (75-99)
[2017-10-19] MEDS: ENOXAPARIN 40 MG/0.4 ML SYRINGE SQ SCH (07:45)
[2017-10-19] MEDS: PANTOPRAZOLE 40 MG/10 ML VIAL IVP SCH (07:51)
[2017-10-19] MEDS ORDERED: D5-0.45% NACL WITH KCL 20MEQ/L 1,000 ML IV SCH (08:00)
[2017-10-19] MEDS ORDERED: POTASSIUM CHLORIDE 20 MEQ in WATER FOR INJECTION 1 100ML.BAG IVPB STA (08:28)
[2017-10-19 12:00] LABS: Glucose,Whole Blood 115 mg/dL (75-99)
[2017-10-19] MEDS ORDERED: POTASSIUM CHLORIDE 10 MEQ in WATER FOR INJECTION 1 100ML.BAG IVPB ONE (12:00)
--- NOTE | 2017-10-19 12:39 | P.GSCN ---
History of Present Illness Consult date: 10/19/17 Reason for Consult: Second opinion for possible laparoscopic surgery History of present illness: This is a 57-year-old female who presented over the weekend with was thought to be a gastroenteritis and this did not improve over time. She came back to the hospital and was subsequently found to have a small bowel obstruction. Patient has a history of a hysterectomy 12 years ago. She's never had a bowel obstruction before in the past. She currently has an NG tube placed which has high output bilious drainage. She states that her belly feels distended mild tenderness in the lower quadrants. She denies any flatus . Her last bowel movement was 5 days ago. She is scheduled for an exploratory laparotomy this afternoon and she requested a second opinion regarding the possibility of laparoscopic surgery. Past Medical History Past Medical History: Diabetes Mellitus, Hypertension History of Any Multi-Drug Resistant Organisms: None Reported Past Surgical History: Breast Surgery, Hysterectomy Past Psychological History: No Psychological Hx Reported Smoking Status: Never smoker Past Alcohol Use History: None Reported Past Drug Use History: None Reported Medications and Allergies Home Medications Medication Instructions Recorded Confirmed Type Dicyclomine [Bentyl] 20 mg PO TID #30 tablet 10/14/17 10/16/17 Rx Ibuprofen [Motrin] 600 mg PO Q8HR PRN #30 tab 10/14/17 10/16/17 Rx Ondansetron Odt [Zofran Odt] 4 mg PO Q8HR PRN #10 tab 10/14/17 10/16/17 Rx Allergies Allergy/AdvReac Type Severity Reaction Status Date / Time Penicillins Allergy Rash/Hives Verified 10/16/17 22:00 Sulfa (Sulfonamide Allergy Rash/Hives Verified 10/16/17 22:00 Antibiotics) Surgical - Exam Osteopathic Statement: *. No significant issues noted on an osteopathic structural exam other than those noted in the History and Physical/Consult. Vital Signs Temp Pulse Resp BP Pulse Ox 97.8 F 82 20 195/85 97 10/16/17 20:58 10/16/17 20:58 10/16/17 20:58 10/16/17 20:58 10/16/17 20:58 - General well developed, well nourished, no distress - Eyes PERRL - ENT normal mucosa - Neck no masses, no bruits, trachea midline - Respiratory normal expansion, normal respiratory effort - Cardiovascular Rhythm: regular - Abdomen Soft distended mild tenderness to palpation in the lower quadrants no rebound rigidity or guarding - Neurologic normal coordination, normal sensation - Psychiatric oriented to time, oriented to person, oriented to place Results - Labs 10/19/17 06:42 10/19/17 06:42 Abnormal Lab Results - Last 24 Hours (Table) 10/19/17 10/19/17 10/19/17 Range/Units 06:42 07:19 07:38 Potassium 3.4 L (3.5-5.1) mmol/L Carbon Dioxide 20 L (22-30) mmol/L Glucose 63 L (74-99) mg/dL POC Glucose (mg/dL) 61 L 135 H (75-99) mg/dL Total Protein 5.2 L (6.3-8.2) g/dL Albumin 2.9 L (3.5-5.0) g/dL 10/19/17 Range/Units 11:55 Potassium (3.5-5.1) mmol/L Carbon Dioxide (22-30) mmol/L Glucose (74-99) mg/dL POC Glucose (mg/dL) 115 H (75-99) mg/dL Total Protein (6.3-8.2) g/dL Albumin (3.5-5.0) g/dL Diabetes panel 10/19/17 Range/Units 06:42 Sodium 137 (137-145) mmol/L Potassium 3.4 L (3.5-5.1) mmol/L Chloride 104 (98-107) mmol/L Carbon Dioxide 20 L (22-30) mmol/L BUN 9 (7-17) mg/dL Creatinine 0.58 (0.52-1.04) mg/dL Glucose 63 L (74-99) mg/dL Calcium 8.7 (8.4-10.2) mg/dL AST 36 (14-36) U/L ALT 41 (9-52) U/L Alkaline Phosphatase 52 (38-126) U/L Total Protein 5.2 L (6.3-8.2) g/dL Albumin 2.9 L (3.5-5.0) g/dL Calcium panel 10/19/17 Range/Units 06:42 Calcium 8.7 (8.4-10.2) mg/dL Albumin 2.9 L (3.5-5.0) g/dL Pituitary panel 10/19/17 Range/Units 06:42 Sodium 137 (137-145) mmol/L Potassium 3.4 L (3.5-5.1) mmol/L Chloride 104 (98-107) mmol/L Carbon Dioxide 20 L (22-30) mmol/L BUN 9 (7-17) mg/dL Creatinine 0.58 (0.52-1.04) mg/dL Glucose 63 L (74-99) mg/dL Calcium 8.7 (8.4-10.2) mg/dL Adrenal panel 10/19/17 Range/Units 06:42 Sodium 137 (137-145) mmol/L Potassium 3.4 L (3.5-5.1) mmol/L Chloride 104 (98-107) mmol/L Carbon Dioxide 20 L (22-30) mmol/L BUN 9 (7-17) mg/dL Creatinine 0.58 (0.52-1.04) mg/dL Glucose 63 L (74-99) mg/dL Calcium 8.7 (8.4-10.2) mg/dL Total Bilirubin 1.0 (0.2-1.3) mg/dL AST 36 (14-36) U/L ALT 41 (9-52) U/L Alkaline Phosphatase 52 (38-126) U/L Total Protein 5.2 L (6.3-8.2) g/dL Albumin 2.9 L (3.5-5.0) g/dL - Imaging CT scan - abdomen: report reviewed, image reviewed CT scan - pelvis: report reviewed, image reviewed Assessment and Plan Assessment: Small bowel obstruction Plan: Patient small bowel stricture likely secondary to adhesive disease. I described to the patient in detail that given the nature of a small bowel obstruction and how distended her abdomen is I do not recommend laparoscopic surgery at this time I do not feel that laparoscopic surgery would be a safe option as there would be minimal room to work and risk of bowel injury would be unacceptable. Patient understood this and she agreed. She states she would like to proceed with surgery with Dr. Brown. Thank you for the opportunity to provide this patient's care if I can be of any further assistance please let me know
--- NOTE | 2017-10-19 13:34 | P.PN ---
Subjective Progress Note Date: 10/19/17 Principal diagnosis: Bowel obstruction. Patient's symptoms are not improving, not passing out or having any bowel movement. Abdomen still distended. Surgery service decided to take patient to the OR. Objective - Vital Signs Vital signs: Vital Signs Temp 98.4 F 10/19/17 13:24 Pulse 73 10/19/17 13:24 Resp 16 10/19/17 13:24 BP 194/94 10/19/17 13:24 Pulse Ox 99 10/19/17 13:24 Intake & Output 10/18/17 10/19/17 10/19/17 18:59 06:59 18:59 Intake Total 1600 Output Total 25 25 Balance -25 1575 Weight 48.534 kg Intake: Intake, IV Titration 1600 Amount Sodium Chloride 0.9% 1, 1600 000 ml @ 100 mls/hr IV . Q10H MARÍA ELENA Rx#:[id number] Output: Gastric Drainage 25 25 Other: Voiding Method Toilet Toilet # Voids 2 2 - Exam Constitutional: No acute distress, conversant, pleasant Eyes:Anicteric sclerae, moist conjunctiva, no lid-lag, PERRLA, ENMT: NG tube in place, Oropharynx clear, no erythema, exudates Neck: Supple, FROM, no masses, or JVD, No carotid bruits, No thyromegaly Lungs: Clear to auscultation, Clear to percussion, Normal respiratory effort, no accessory muscle use Cardiovascular: Heart regular in rate and rhythm, No murmurs, gallops, or rubs, No peripheral edema Abdominal: Slightly distended, sluggish bowel sounds. Soft, slightly tender all over , no guarding, rebound or rigidity, Normoactive bowel sounds, No hepatomegaly, No splenomegaly, No palpable mass Skin: Normal temperature, tone, texture, turgor, no induration, No subcutaneous nodules, No rash, lesions, No ulcers Extremities: No digital cyanosis, No clubbing, Pedal pulses intact and symmetrical, Radial pulses intact and symmetrical, No calf tenderness Psychiatric: Alert and oriented to person, place and time, appropriate affect, intact judgement Neuro: Muscles Strength 5/5 in all 4 extremities, Sensation to light touch grossly present throughout, Cranial nerves II-XII grossly intact, no focal sensory deficits - Labs CBC & Chem 7: 10/19/17 06:42 10/19/17 06:42 Labs: Abnormal Lab Results - Last 24 Hours (Table) 10/19/17 10/19/17 10/19/17 Range/Units 06:42 07:19 07:38 Potassium 3.4 L (3.5-5.1) mmol/L Carbon Dioxide 20 L (22-30) mmol/L Glucose 63 L (74-99) mg/dL POC Glucose (mg/dL) 61 L 135 H (75-99) mg/dL Total Protein 5.2 L (6.3-8.2) g/dL Albumin 2.9 L (3.5-5.0) g/dL 10/19/17 Range/Units 11:55 Potassium (3.5-5.1) mmol/L Carbon Dioxide (22-30) mmol/L Glucose (74-99) mg/dL POC Glucose (mg/dL) 115 H (75-99) mg/dL Total Protein (6.3-8.2) g/dL Albumin (3.5-5.0) g/dL Assessment and Plan Plan: # Mechanical small bowel obstruction Surgery planned for this afternoon Continue IV fluid for hydration Pain control Continue nasal gastric tube to intermittent suction and monitor response # Preoperative evaluation Patient is a low risk for this procedure, as she has no history of heart or lung conditions. # Essential hypertension, Type 2 diabetes non-insulin A1c is 6.4, likely diabetic--new diagnosis SSI Blood pressure is up, use Vasotec IV when necessary during and after surgery. # DVT and GI prophylaxis
[2017-10-19] MEDS ORDERED: SUCCINYLCHOLINE CHLORIDE 100 MG/5 ML SYR IV ONE (14:15)
[2017-10-19] MEDS ORDERED: LIDOCAINE 1% INJ 10MG/ML (20 ML MDV) ONE (14:15)
[2017-10-19] MEDS ORDERED: CLINDAMYCIN 150 MG/ML 4 ML VIAL ONE (14:15)
[2017-10-19] MEDS ORDERED: PHENYLEPHRINE-0.9% NACL SYG 1 MG/10 ML SYRINGE ONE (14:15)
[2017-10-19] MEDS ORDERED: PROPOFOL 10 MG/ML 20 ML VIAL IV ONE (14:15)
[2017-10-19] MEDS ORDERED: fentaNYL (PF) 50 MCG/ML 2 ML AMP ONE (14:15)
[2017-10-19] MEDS ORDERED: MIDAZOLAM 2 MG/2 ML VIAL ONE (14:15)
[2017-10-19] MEDS ORDERED: LACTATED RINGERS 1,000 ML IV ONE ×3 (14:15→15:16)
[2017-10-19] MEDS ORDERED: NEOSTIGMINE 1 MG/ML 10 ML VIAL ONE (14:15)
[2017-10-19] MEDS ORDERED: ROCURONIUM BROMIDE 10 MG/ML 10 ML VIAL IV ONE (14:15)
[2017-10-19] MEDS ORDERED: ONDANSETRON 4 MG/2 ML VIAL ONE (14:15)
[2017-10-19] MEDS ORDERED: HEPARIN SODIUM,PORCINE 5,000 UNIT/ML 1 ML VIAL ONE (14:15)
--- NOTE | 2017-10-19 14:24 | P.PN ---
Subjective Progress Note Date: 10/19/17 Patient continues to have abdominal distention and has not passed any flatus. Abdominal x-rays continued to be consistent with dilated small bowel with air- fluid levels consistent with a high-grade small bowel obstruction. After discussion with the patient and her they have agreed to exploratory laparotomy probable lysis of adhesions and any indicated procedure. The patient initially had some question as to whether this could be done laparoscopically. I discussed with her that I would personally do this with an open procedure however I did obtain consultation with Dr. Sukhdeep Whitney. Dr. Whitney had a conversation with the patient and likewise recommended an open procedure. Therefore, the patient and her are very comfortable with this approach and wished to proceed.They understand the risks and benefits of the procedure including bleeding and infection reaction to the anesthetic possible bowel resection and possible ostomy. Objective - Vital Signs Vital signs: Vital Signs Temp 98.4 F 10/19/17 13:24 Pulse 73 10/19/17 13:24 Resp 16 10/19/17 13:24 BP 194/94 10/19/17 13:24 Pulse Ox 99 10/19/17 13:24 Intake & Output 10/18/17 10/19/17 10/19/17 18:59 06:59 18:59 Intake Total 1600 Output Total 25 25 Balance -25 1575 Weight 48.534 kg Intake: Intake, IV Titration 1600 Amount Sodium Chloride 0.9% 1, 1600 000 ml @ 100 mls/hr IV . Q10H [facility] Rx#:[id number] Output: Gastric Drainage 25 25 Other: Voiding Method Toilet Toilet # Voids 2 2 - Constitutional General appearance: Present: average body habitus - Respiratory Details: Decreased breath sounds at the bases - Cardiovascular Rhythm: regular Heart sounds: normal: S1, S2 - Gastrointestinal General gastrointestinal: Present: distended, normal bowel sounds - Psychiatric Psychiatric: Present: A&O x's 3, appropriate affect - Labs CBC & Chem 7: 10/19/17 06:42 10/19/17 06:42 Labs: Abnormal Lab Results - Last 24 Hours (Table) 10/19/17 10/19/17 10/19/17 Range/Units 06:42 07:19 07:38 Potassium 3.4 L (3.5-5.1) mmol/L Carbon Dioxide 20 L (22-30) mmol/L Glucose 63 L (74-99) mg/dL POC Glucose (mg/dL) 61 L 135 H (75-99) mg/dL Total Protein 5.2 L (6.3-8.2) g/dL Albumin 2.9 L (3.5-5.0) g/dL 10/19/17 Range/Units 11:55 Potassium (3.5-5.1) mmol/L Carbon Dioxide (22-30) mmol/L Glucose (74-99) mg/dL POC Glucose (mg/dL) 115 H (75-99) mg/dL Total Protein (6.3-8.2) g/dL Albumin (3.5-5.0) g/dL - Imaging and Cardiology Abdominal x-ray: report reviewed, image reviewed Assessment and Plan Assessment: Impression/plan: 1. 57-year-old black female with a distal high-grade small bowel obstruction 2. Failure of resolution with NG suction and IV fluid hydration Plan: 1. Exploratory laparotomy and probable lysis of adhesions any indicated procedures Patient and her understand risks and benefits and wish to proceed.
[2017-10-19] MEDS ORDERED: SODIUM CHLORIDE 0.9% 50 ML with CLINDAMYCIN 600 MG IV ONE ×2 (14:29)
[2017-10-19] MEDS ORDERED: HEPARIN SODIUM,PORCINE 5,000 UNIT/ML 1 ML VIAL SQ ONE (15:00)
[2017-10-19] MEDS ORDERED: NALOXONE 0.4 MG/ML 1 ML VIAL IV PRN (16:05)
--- NOTE | 2017-10-19 16:05 | P.OP ---
Date of Procedure: 10/19/17 Preoperative Diagnosis: High-grade small bowel obstruction Postoperative Diagnosis: Same, multiple adhesions Procedure(s) Performed: Lysis of adhesions, appendectomy Anesthesia: SHELBYA Surgeon: Janneth Brown Estimated Blood Loss (ml): 30 IV fluids (ml): 1,200 Urine output (ml): 275 Pathology: other (Appendix) Condition: stable Disposition: PACU Indications for Procedure: High-grade small bowel obstruction Operative Findings: Adhesive bands, high-grade small bowel obstruction Description of Procedure: Patient was taken to the operating room and following induction of general anesthesia the abdomen was prepped and draped in a sterile fashion. A midline abdominal incision was made and carried through the skin and subcutaneous tissue to the fascia of the anterior abdominal wall. This was opened and the peritoneal cavity was entered. Upon entering the peritoneal cavity there was a large amount of serous fluid present. This was suctioned. The proximal small bowel was very dilated and distended. The small bowel was firmly adherent to the anterior abdominal wall. This was carefully taken down using sharp dissection. The dilated bowel was then followed distally and we were able to identify very tight singleband adhesion. This was divided using the LigaSure. The small bowel was viable and the proximal bowel contents were able to easily be milked into the distal bowel. Additional areas of adhesions were also identified. These were carefully taken down using sharp dissection. The small bowel was run to the area of the cecum. The appendix was noted to be tethered down into a area of adhesions and to be somewhat dilated. We therefore determined that we would do an appendectomy at this time. The appendix was elevated and the mesoappendix was divided using the LigaSure. This was carried down to the base of the appendix. The base of the appendix was crushed and doubly ligated using silk suture. This was followed by placement of the distal silk stay suture. The appendix was clamped using a straight clamp and divided and appendectomy was performed. The small bowel was run again from the area of the ligament of Treitz to the area of the cecum. No further adhesions causing obstruction were identified. The stomach was palpated the NG tube was not able to be I felt and that tube was removed and a new one was placed and palpated to be in the proper location. Palpation of the colon did not reveal any lesions of concern in the colon. The surface of the liver appeared to be smooth without lesions of concern. The enteric contents in the dilated small bowel was milked distally into the area of the cecum. The peritoneal cavity was well irrigated. After assured that hemostasis was attained the intra-abdominal wall was closed using double-stranded PDS with interrupted Prolene sutures. The subcutaneous tissues were closed with a 3-0 Vicryl suture. A drain was left in the subcutaneous tissues. The skin was closed using kamilah. The patient tolerated procedure in stable condition. All instrument and sponge counts were correct at the end of the case. Findings: 1. Multiple adhesions with a very tight singleband area, takedown of multiple adhesions with sharp dissection 2. Appendectomy
[2017-10-19] MEDS: fentaNYL (PF) 50 MCG/ML 2 ML AMP IVP ONE ×4 (16:25→17:58)
[2017-10-19 16:47] LABS: Glucose,Whole Blood 120 mg/dL (75-99)
[2017-10-19] MEDS: MORPHINE SULFATE 4MG/4ML SYRG IVP ONE ×2 (16:47→17:00)
[2017-10-19] MEDS: SODIUM CHLORIDE 0.9% 1,000 ML IV SCH (17:41)
[2017-10-19 20:21] LABS: Glucose,Whole Blood 173 mg/dL (75-99)
[2017-10-19] MEDS: DEXTROSE 5%-0.45% NACL 1,000 ML IV SCH (21:28)
[2017-10-19] MEDS: ONDANSETRON 4 MG/2 ML VIAL IVP PRN (22:19)
[2017-10-19] MEDS: MORPHINE SULFATE 4MG/4ML SYRG IV PRN (23:59)
[2017-10-20] MEDS: HEPARIN SODIUM,PORCINE 5,000 UNIT/ML 1 ML VIAL SQ SCH ×4 (00:03→23:44)
[2017-10-20] MEDS: MORPHINE SULFATE 4MG/4ML SYRG IV PRN ×2 (03:46→08:23)
[2017-10-20] MEDS: DEXTROSE 5%-0.45% NACL 1,000 ML IV SCH (03:46)
[2017-10-20 03:59] LABS: Glucose,Whole Blood 198 mg/dL (75-99)
[2017-10-20 07:32] LABS: Basophils % (A) 0 %; Eosinophils # (A) 0.1 k/uL (0-0.7); Eosinophils % (A) 2 %; HCT 38.1 % (34.0-46.0); HGB 12.5 gm/dL (11.4-16.0); Lymphocytes # (A) 0.7 k/uL (1.0-4.8); Lymphocytes % (A) 19 %; MCH 27.1 pg (25.0-35.0); MCHC 32.8 g/dL (31.0-37.0); MCV 82.6 fL (80.0-100.0); Mean Platelet Volume 7.2; Monocytes # (A) 0.2 k/uL (0-1.0); Monocytes % (A) 7 %; Neutrophils # (A) 2.4 k/uL (1.3-7.7); Neutrophils % (A) 72 %; Platelet Count 218 k/uL (150-450); RBC 4.62 m/uL (3.80-5.40); RDW 13.3 % (11.5-15.5); WBC 3.4 k/uL (3.8-10.6)
[2017-10-20 07:43] LABS: Glucose,Whole Blood 215 mg/dL (75-99)
[2017-10-20 08:00] LABS: ALT 53 U/L (9-52); AST 27 U/L (14-36); Albumin 2.6 g/dL (3.5-5.0); Alkaline Phosphatase 48 U/L (38-126); Anion Gap 9 mmol/L; Blood Urea Nitrogen 4 mg/dL (7-17); Calcium 8.2 mg/dL (8.4-10.2); Carbon Dioxide 24 mmol/L (22-30); Chloride 98 mmol/L (98-107); Glucose 211 mg/dL (74-99); Potassium 3.4 mmol/L (3.5-5.1); Sodium 131 mmol/L (137-145); Total Bilirubin 0.9 mg/dL (0.2-1.3); Total Protein 4.8 g/dL (6.3-8.2)
[2017-10-20] MEDS: INSULIN ASPART 100 UNIT/ML 1 ML 10 ML VIAL SQ SCH ×4 (08:32→21:35)
[2017-10-20] MEDS: ONDANSETRON 4 MG/2 ML VIAL IVP PRN (08:41)
[2017-10-20] MEDS ORDERED: BISACODYL 10 MG SUPP RECTAL STA (08:56)
--- NOTE | 2017-10-20 09:21 | P.PN ---
Subjective Progress Note Date: 10/20/17 57-year-old female being seen on rounds this morning sitting up in bed states passing gas. Nasogastric tube to suction surgical dressing site dry few hypoactive bowel tones indwelling Sanchez catheter in place patient reports pain medication effective for surgical discomfort REYNA drain in place serous drainage in the bulb Postop October 19 lysis of adhesion appendectomy for high-grade small bowel obstruction with multiple adhesions Objective - Vital Signs Vital signs: Vital Signs Temp 99.5 F 10/20/17 01:45 Pulse 76 10/20/17 01:45 Resp 16 10/20/17 01:45 BP 136/84 10/20/17 01:45 Pulse Ox 98 10/20/17 01:45 Intake & Output 10/19/17 10/20/17 10/20/17 18:59 06:59 18:59 Intake Total 1554 Output Total 480 175 Balance 1074 -175 Weight 48.534 kg 48.534 kg Intake: IV 1554 Output: Urine 450 175 Stool 0 Estimated Blood Loss 30 Other: Voiding Method Toilet Toilet # Voids 0 - Exam Physical exam 57-year-old female sitting up in bed appears in no acute distress Lungs adequate air movement bilaterally no wheezing rales or rhonchi Heart S1-S2 audible regular denying chest pain Abdomen abdominal binder removed surgical incision site dressings dry REYNA drain in place serous drainage acute hypoactive bowel tones states passing gas indwelling Sanchez catheter in place nasogastric tube to suction 200 out for the last 12 hours no nausea no vomiting surgical tenderness appropriate nondistended Extremities no edema - Labs CBC & Chem 7: 10/20/17 07:07 10/20/17 07:07 Labs: Abnormal Lab Results - Last 24 Hours (Table) 10/19/17 10/19/17 10/19/17 Range/Units 11:55 16:39 20:19 WBC (3.8-10.6) k/uL Lymphocytes # (1.0-4.8) k/uL Sodium (137-145) mmol/L Potassium (3.5-5.1) mmol/L BUN (7-17) mg/dL Creatinine (0.52-1.04) mg/dL Glucose (74-99) mg/dL POC Glucose (mg/dL) 115 H 120 H 173 H (75-99) mg/dL Calcium (8.4-10.2) mg/dL ALT (9-52) U/L Total Protein (6.3-8.2) g/dL Albumin (3.5-5.0) g/dL 10/20/17 10/20/17 10/20/17 Range/Units 03:56 07:07 07:07 WBC 3.4 L (3.8-10.6) k/uL Lymphocytes # 0.7 L (1.0-4.8) k/uL Sodium 131 L (137-145) mmol/L Potassium 3.4 L (3.5-5.1) mmol/L BUN 4 L (7-17) mg/dL Creatinine 0.49 L (0.52-1.04) mg/dL Glucose 211 H (74-99) mg/dL POC Glucose (mg/dL) 198 H (75-99) mg/dL Calcium 8.2 L (8.4-10.2) mg/dL ALT 53 H (9-52) U/L Total Protein 4.8 L (6.3-8.2) g/dL Albumin 2.6 L (3.5-5.0) g/dL 10/20/17 Range/Units 07:41 WBC (3.8-10.6) k/uL Lymphocytes # (1.0-4.8) k/uL Sodium (137-145) mmol/L Potassium (3.5-5.1) mmol/L BUN (7-17) mg/dL Creatinine (0.52-1.04) mg/dL Glucose (74-99) mg/dL POC Glucose (mg/dL) 215 H (75-99) mg/dL Calcium (8.4-10.2) mg/dL ALT (9-52) U/L Total Protein (6.3-8.2) g/dL Albumin (3.5-5.0) g/dL Microbiology - Last 24 Hours (Table) 10/19/17 15:40 Gram Stain - Preliminary Appendix Wound Culture - Preliminary 10/19/17 15:40 Anaerobic Culture - Preliminary Appendix Assessment and Plan Assessment: Impression Present on admission intractable nausea vomiting abdominal pain suspect due to mechanical small bowel obstruction Ultrasound of the abdomen obtained on the show gallstones without convincing sec can Morrill ultrasound evidence of an acute cholecystitis Computed tomography scan abdomen pelvis with contrast report showed extensive dilated small bowel consistent with distal mechanical small bowel obstruction Present on admission accelerated hypertension Type 2 diabetes non-insulin History of abdominal hysterectomy 10 years prior History of surveillant colonoscopy 8 years prior Postop October 19 2017 lysis of adhesions, appendectomy for high-grade small bowel obstruction with multiple adhesions Plan Continue postop surgical care Remove indwelling Sanchez catheter now Dulcolax suppository now Continue IV fluid for hydration Pain control Nasal gastric tube to be clamped for 4 hours if less than 100 start clear liquid diet DVT and GI prophylaxis Will follow with you with further surgical recommendations Increase activity Check labs in the morning Defer to medicine to address blood sugars note dictated for Dr. Levine The above impression and plan of care have been discussed and directed by signing physician. Sheyla Shepherd nurse practitioner acting as scribe for signing physician.
[2017-10-20] MEDS: SODIUM CHLORIDE 0.9% 1,000 ML IV SCH ×2 (09:30→23:45)
[2017-10-20] MEDS: PANTOPRAZOLE 40 MG/10 ML VIAL IV SCH (09:31)
[2017-10-20] MEDS: POTASSIUM CHLORIDE 20 MEQ in WATER FOR INJECTION 1 100ML.BAG IVPB SCH ×2 (10:25→14:35)
[2017-10-20 11:19] LABS: Glucose,Whole Blood 149 mg/dL (75-99)
[2017-10-20] MEDS ORDERED: HYDROcodone/APAP 7.5-325MG 1 EACH TAB PO PRN (11:21)
--- NOTE | 2017-10-20 12:21 | P.PN ---
Subjective Progress Note Date: 10/20/17 Principal diagnosis: Small bowel obstruction Patient is a 57-year-old female with a known history of diabetes mellitus, hypertension and surgical history including hysterectomy who initially presented to the ED and was thought to have acute gastroenteritis, sent home however symptomatically worsened. Patient return was found to have a small bowel obstruction, NG tube placed and surgery consulted. Patient underwent expiratory laparotomy on 10/19/2017 showing adhesive bands with high-grade small bowel obstruction, underwent lysis of adhesions and appendectomy. Patient seen and examined laying in bed comfortably, NG tube clamped. Patient states she thinks she might have had some passing gas early this morning however states she may have been dreaming. Pain is currently controlled. No nausea. No fever or chills. Objective - Vital Signs Vital signs: Vital Signs Temp 99.3 F 10/20/17 08:20 Pulse 86 10/20/17 08:20 Resp 16 10/20/17 08:20 BP 136/65 10/20/17 08:20 Pulse Ox 98 10/20/17 08:20 Intake & Output 10/19/17 10/20/17 10/20/17 18:59 06:59 18:59 Intake Total 1554 Output Total 293 130 3743 Balance 1074 -175 -2004 Weight 48.534 kg 48.534 kg Intake: IV 1554 Output: Drainage 30 Distal Abdomen 30 Urine 738 684 1407 Uretheral (Sanchez) 1974 Stool 0 Estimated Blood Loss 30 Other: Voiding Method Toilet Toilet Indwelling Catheter # Voids 0 - Exam General: A/O x 3, NAD, Lying in bed comfortably HEENT: EOMI, MMM, atraumatic normocephalic. Clamped NG tube Neck: Supple. No JVD, trachea midline CVS: Regular rate and rhythm. + S1/S2, no murmurs/gallops/rubs Respiratory: Bilateral air entry noted. Clear to auscultation, no wheeze, no rhonchi Abdomen: Soft, nontender, nondistended. Bowel sounds hypoactive Extremities: No lower extremity edema. No clubbing or cyanosis Skin: No rash or skin change noted Psych: Without hallucinations, abnormal affect, or abnormal behaviors during the examination - Labs CBC & Chem 7: 10/20/17 07:07 10/20/17 07:07 Labs: Abnormal Lab Results - Last 24 Hours (Table) 10/19/17 10/19/17 10/20/17 Range/Units 16:39 20:19 03:56 WBC (3.8-10.6) k/uL Lymphocytes # (1.0-4.8) k/uL Sodium (137-145) mmol/L Potassium (3.5-5.1) mmol/L BUN (7-17) mg/dL Creatinine (0.52-1.04) mg/dL Glucose (74-99) mg/dL POC Glucose (mg/dL) 120 H 173 H 198 H (75-99) mg/dL Calcium (8.4-10.2) mg/dL ALT (9-52) U/L Total Protein (6.3-8.2) g/dL Albumin (3.5-5.0) g/dL 10/20/17 10/20/17 10/20/17 Range/Units 07:07 07:07 07:41 WBC 3.4 L (3.8-10.6) k/uL Lymphocytes # 0.7 L (1.0-4.8) k/uL Sodium 131 L (137-145) mmol/L Potassium 3.4 L (3.5-5.1) mmol/L BUN 4 L (7-17) mg/dL Creatinine 0.49 L (0.52-1.04) mg/dL Glucose 211 H (74-99) mg/dL POC Glucose (mg/dL) 215 H (75-99) mg/dL Calcium 8.2 L (8.4-10.2) mg/dL ALT 53 H (9-52) U/L Total Protein 4.8 L (6.3-8.2) g/dL Albumin 2.6 L (3.5-5.0) g/dL 10/20/17 Range/Units 11:17 WBC (3.8-10.6) k/uL Lymphocytes # (1.0-4.8) k/uL Sodium (137-145) mmol/L Potassium (3.5-5.1) mmol/L BUN (7-17) mg/dL Creatinine (0.52-1.04) mg/dL Glucose (74-99) mg/dL POC Glucose (mg/dL) 149 H (75-99) mg/dL Calcium (8.4-10.2) mg/dL ALT (9-52) U/L Total Protein (6.3-8.2) g/dL Albumin (3.5-5.0) g/dL Microbiology - Last 24 Hours (Table) 10/19/17 15:40 Gram Stain - Preliminary Appendix Wound Culture - Preliminary 10/19/17 15:40 Anaerobic Culture - Preliminary Appendix Assessment and Plan (1) Small bowel obstruction Current Visit: Yes Status: Acute Code(s): K56.609 - UNSP INTESTNL OBST, UNSP TO PARTIAL VERSUS COMPLETE OBST SNOMED Code(s): 167599079 (2) Hypertension Current Visit: Yes Status: Acute Code(s): I10 - ESSENTIAL (PRIMARY) HYPERTENSION SNOMED Code(s): 48178878 (3) Type 2 diabetes mellitus Current Visit: Yes Status: Acute Code(s): E11.9 - TYPE 2 DIABETES MELLITUS WITHOUT COMPLICATIONS SNOMED Code(s): 19013441 Plan: 1. Small bowel obstruction 2. Postop day #1 lysis of adhesions, appendectomy 3. Diabetes mellitus type 2 4. History of hysterectomy Postop day #1 lysis of adhesions, appendectomy. Surgery following. On ice chips at this time, NG clamped. Plan to start clear liquid diet if tolerates. Surgery also started to collect suppository. Sanchez catheter to be removed today. Encourage mobility. Patient's blood glucose running between 150 and 215. Monitor on sliding scale insulin. Heparin for DVT prophylaxis.
[2017-10-20] MEDS: MAGNESIUM SULFATE-D5W PMX 1 GM in DEXTROSE/WATER 1 100ML.BAG IVPB SCH ×2 (13:11→17:05)
[2017-10-20 17:38] LABS: Glucose,Whole Blood 189 mg/dL (75-99)
[2017-10-20] MEDS ORDERED: MORPHINE SULFATE 4 MG/0.8 ML SYRINGE (INJ) IVP PRN (17:50)
[2017-10-20] MEDS ORDERED: MORPHINE SULFATE 4 MG/0.8 ML SYRINGE (INJ) IV PRN (17:51)
[2017-10-20 20:47] LABS: Glucose,Whole Blood 129 mg/dL (75-99)
[2017-10-20 23:51] LABS: Glucose,Whole Blood 115 mg/dL (75-99)
[2017-10-21 06:08] LABS: Glucose,Whole Blood 102 mg/dL (75-99)
[2017-10-21 07:56] LABS: Basophils % (A) 0 %; Eosinophils % (A) 1 %; HCT 36.9 % (34.0-46.0); HGB 12.3 gm/dL (11.4-16.0); Lymphocytes % (A) 24 %; MCH 27.6 pg (25.0-35.0); MCHC 33.3 g/dL (31.0-37.0); MCV 82.9 fL (80.0-100.0); Mean Platelet Volume 7.5; Monocytes # (A) 0.6 k/uL (0-1.0); Monocytes % (A) 13 %; Neutrophils # (A) 2.5 k/uL (1.3-7.7); Neutrophils % (A) 60 %; Platelet Count 252 k/uL (150-450); RBC 4.46 m/uL (3.80-5.40); RDW 13.6 % (11.5-15.5); WBC 4.2 k/uL (3.8-10.6)
[2017-10-21 08:14] LABS: ALT 31 U/L (9-52); AST 17 U/L (14-36); Albumin 2.6 g/dL (3.5-5.0); Alkaline Phosphatase 46 U/L (38-126); Anion Gap 9 mmol/L; Blood Urea Nitrogen 3 mg/dL (7-17); Calcium 8.2 mg/dL (8.4-10.2); Carbon Dioxide 27 mmol/L (22-30); Chloride 100 mmol/L (98-107); Glucose 109 mg/dL (74-99); Magnesium 2.2 mg/dL (1.6-2.3); Potassium 3.4 mmol/L (3.5-5.1); Sodium 136 mmol/L (137-145); Total Bilirubin 0.7 mg/dL (0.2-1.3); Total Protein 4.8 g/dL (6.3-8.2)
[2017-10-21] MEDS: INSULIN ASPART 100 UNIT/ML 1 ML 10 ML VIAL SQ SCH ×4 (08:51→23:36)
[2017-10-21] MEDS: HEPARIN SODIUM,PORCINE 5,000 UNIT/ML 1 ML VIAL SQ SCH ×3 (08:51→23:07)
[2017-10-21] MEDS: PANTOPRAZOLE 40 MG/10 ML VIAL IV SCH (08:51)
[2017-10-21 11:48] LABS: Glucose,Whole Blood 114 mg/dL (75-99)
--- NOTE | 2017-10-21 12:47 | P.PN ---
Subjective Progress Note Date: 10/21/17 Patient is postop day #2 ambulating without difficulty NG tube in place Patient doing well states abdominal pain has improved however she is complaining of the NG tube. Objective - Vital Signs Vital signs: Vital Signs Temp 100.5 F H 10/21/17 07:00 Pulse 89 10/21/17 07:00 Resp 20 10/21/17 07:00 BP 136/85 10/21/17 07:00 Pulse Ox 95 10/21/17 07:00 Intake & Output 10/20/17 10/21/17 10/21/17 18:59 06:59 18:59 Intake Total 781 Output Total 2034 10 Balance -2034 771 Intake: Intake, IV Titration 741 Amount Sodium Chloride 0.9% 1, 741 000 ml @ 75 mls/hr IV . [id number] [facility] Rx#:[id number] Oral 40 Output: Drainage 60 10 Distal Abdomen 60 10 Urine 1975 Uretheral (Sanchez) 1974 Other: Voiding Method Indwelling Catheter Toilet Toilet # Voids 3 2 - Constitutional General appearance: Present: average body habitus - Respiratory Respiratory: bilateral: CTA - Cardiovascular Rhythm: regular Heart sounds: normal: S1, S2 - Gastrointestinal Gastrointestinal Comment(s): Incision clean and dry REYNA drain in place approximately 70 mL serous fluid General gastrointestinal: Present: decreased bowel sounds - Psychiatric Psychiatric: Present: A&O x's 3, appropriate affect, intact judgment & insight - Labs CBC & Chem 7: 10/21/17 07:10 10/21/17 07:10 Labs: Abnormal Lab Results - Last 24 Hours (Table) 10/20/17 10/20/17 10/20/17 Range/Units 17:36 20:35 23:50 Sodium (137-145) mmol/L Potassium (3.5-5.1) mmol/L BUN (7-17) mg/dL Glucose (74-99) mg/dL POC Glucose (mg/dL) 189 H 129 H 115 H (75-99) mg/dL Calcium (8.4-10.2) mg/dL Total Protein (6.3-8.2) g/dL Albumin (3.5-5.0) g/dL 10/21/17 10/21/17 10/21/17 Range/Units 06:03 07:10 11:46 Sodium 136 L (137-145) mmol/L Potassium 3.4 L (3.5-5.1) mmol/L BUN 3 L (7-17) mg/dL Glucose 109 H (74-99) mg/dL POC Glucose (mg/dL) 102 H 114 H (75-99) mg/dL Calcium 8.2 L (8.4-10.2) mg/dL Total Protein 4.8 L (6.3-8.2) g/dL Albumin 2.6 L (3.5-5.0) g/dL Microbiology - Last 24 Hours (Table) 10/19/17 15:40 Gram Stain - Preliminary Appendix Wound Culture - Preliminary Assessment and Plan Assessment: Impression/plan: 1. 57-year-old black female with a distal high-grade small bowel obstruction, postoperative day #2 lysis of adhesions Plan: 1. Await return of bowel function
--- NOTE | 2017-10-21 13:01 | P.PN ---
Subjective Principal diagnosis: Small bowel obstruction Patient is a 57-year-old female with a known history of diabetes mellitus, hypertension and surgical history including hysterectomy who initially presented to the ED and was thought to have acute gastroenteritis, sent home however symptomatically worsened. Patient return was found to have a small bowel obstruction, NG tube placed and surgery consulted. Patient underwent expiratory laparotomy on 10/19/2017 showing adhesive bands with high-grade small bowel obstruction, underwent lysis of adhesions and appendectomy. Patient seen and examined laying in bed comfortably, NG tube clamped. Patient reports that she has not passed any gas. No bowel movement. States pain is controlled. No chest pain or pressure. No fever or chills. Objective - Vital Signs Vital signs: Vital Signs Temp 100.5 F H 10/21/17 07:00 Pulse 89 10/21/17 07:00 Resp 20 10/21/17 07:00 BP 136/85 10/21/17 07:00 Pulse Ox 95 10/21/17 07:00 Intake & Output 10/20/17 10/21/17 10/21/17 18:59 06:59 18:59 Intake Total 781 Output Total 2034 10 Balance -2034 771 Intake: Intake, IV Titration 741 Amount Sodium Chloride 0.9% 1, 741 000 ml @ 75 mls/hr IV . [id number] [facility] Rx#:[id number] Oral 40 Output: Drainage 60 10 Distal Abdomen 60 10 Urine 1975 Uretheral (Sanchez) 1974 Other: Voiding Method Indwelling Catheter Toilet Toilet # Voids 3 2 - Exam General: A/O x 3, NAD, Lying in bed comfortably HEENT: EOMI, MMM, atraumatic normocephalic. Clamped NG tube Neck: Supple. No JVD, trachea midline CVS: Regular rate and rhythm. + S1/S2, no murmurs/gallops/rubs Respiratory: Bilateral air entry noted. Clear to auscultation, no wheeze, no rhonchi Abdomen: Soft, nontender, nondistended. Bowel sounds hypoactive Extremities: No lower extremity edema. No clubbing or cyanosis Skin: No rash or skin change noted Psych: Without hallucinations, abnormal affect, or abnormal behaviors during the examination - Labs CBC & Chem 7: 10/21/17 07:10 10/21/17 07:10 Labs: Abnormal Lab Results - Last 24 Hours (Table) 10/20/17 10/20/17 10/20/17 Range/Units 17:36 20:35 23:50 Sodium (137-145) mmol/L Potassium (3.5-5.1) mmol/L BUN (7-17) mg/dL Glucose (74-99) mg/dL POC Glucose (mg/dL) 189 H 129 H 115 H (75-99) mg/dL Calcium (8.4-10.2) mg/dL Total Protein (6.3-8.2) g/dL Albumin (3.5-5.0) g/dL 10/21/17 10/21/17 10/21/17 Range/Units 06:03 07:10 11:46 Sodium 136 L (137-145) mmol/L Potassium 3.4 L (3.5-5.1) mmol/L BUN 3 L (7-17) mg/dL Glucose 109 H (74-99) mg/dL POC Glucose (mg/dL) 102 H 114 H (75-99) mg/dL Calcium 8.2 L (8.4-10.2) mg/dL Total Protein 4.8 L (6.3-8.2) g/dL Albumin 2.6 L (3.5-5.0) g/dL Microbiology - Last 24 Hours (Table) 10/19/17 15:40 Gram Stain - Preliminary Appendix Wound Culture - Preliminary Assessment and Plan (1) Small bowel obstruction Current Visit: Yes Status: Acute Code(s): K56.609 - UNSP INTESTNL OBST, UNSP TO PARTIAL VERSUS COMPLETE OBST SNOMED Code(s): 148004114 (2) Hypertension Current Visit: Yes Status: Acute Code(s): I10 - ESSENTIAL (PRIMARY) HYPERTENSION SNOMED Code(s): 24552326 (3) Type 2 diabetes mellitus Current Visit: Yes Status: Acute Code(s): E11.9 - TYPE 2 DIABETES MELLITUS WITHOUT COMPLICATIONS SNOMED Code(s): 72904609 Plan: 1. Small bowel obstruction 2. Postop day #2 lysis of adhesions, appendectomy 3. Diabetes mellitus type 2 4. History of hysterectomy Postop day #2 lysis of adhesions, appendectomy. Surgery following. On ice chips at this time, NG clamped. Still hasn't passed gas. Hypoactive bowel sounds. Awaiting further return of bowel function prior to advancing diet to clear liquids. Her itch continued mobility. Patient's blood glucose today is more controlled, monitoring and sliding scale. Heparin for DVT prophylaxis.
[2017-10-21] MEDS: SODIUM CHLORIDE 0.9% 1,000 ML IV SCH ×2 (15:49→15:51)
[2017-10-21 17:06] LABS: Appearance,Urine Clear (Clear); Bilirubin,Urine Negative (Negative); Blood,Urine Trace (Negative); Color,Urine Light Yellow; Glucose,Urine (UA) Negative (Negative); Ketones,Urine 3+ (Negative); Leukocyte Esterase,Urine Negative (Negative); Mucus,Urine Rare /hpf; Nitrite,Urine Negative (Negative); Protein,Urine Negative (Negative); RBC,Urine 1 /hpf (0-5); Squamous Epithelial Cell,Urine 2 /hpf (0-4); Urobilinogen,Urine <2.0 mg/dL (<2.0); WBC,Urine 2 /hpf (0-5)
[2017-10-21 18:00] LABS: Glucose,Whole Blood 73 mg/dL (75-99)
[2017-10-21 18:14] LABS: Glucose,Whole Blood 84 mg/dL (75-99)
[2017-10-21] MEDS ORDERED: BISACODYL 10 MG SUPP RECTAL STA (21:49)
[2017-10-22 00:43] LABS: Glucose,Whole Blood 109 mg/dL (75-99)
[2017-10-22 06:36] LABS: Glucose,Whole Blood 86 mg/dL (75-99)
[2017-10-22] MEDS: PANTOPRAZOLE 40 MG/10 ML VIAL IV SCH (08:31)
[2017-10-22] MEDS: HEPARIN SODIUM,PORCINE 5,000 UNIT/ML 1 ML VIAL SQ SCH ×2 (08:31→16:33)
[2017-10-22] MEDS: INSULIN ASPART 100 UNIT/ML 1 ML 10 ML VIAL SQ SCH ×4 (08:40→22:19)
[2017-10-22 11:53] LABS: Glucose,Whole Blood 78 mg/dL (75-99)
--- NOTE | 2017-10-22 12:04 | P.PN ---
Subjective Progress Note Date: 10/22/17 Patient is postop day #3 ambulating without difficulty NG tube dislodged, patient had a bowel movement Patient is not complaining of abdominal pain Objective - Vital Signs Vital signs: Vital Signs Temp 99.3 F 10/22/17 07:00 Pulse 89 10/22/17 07:00 Resp 18 10/22/17 07:00 BP 155/82 10/22/17 07:00 Pulse Ox 95 10/22/17 07:00 Intake & Output 10/21/17 10/22/17 10/22/17 18:59 06:59 18:59 Intake Total 600 1570 Output Total 50 15 Balance 550 1555 Weight 48.534 kg Intake: Intake, IV Titration 600 1450 Amount Sodium Chloride 0.9% 1, 600 1450 000 ml @ 75 mls/hr IV . [id number] [facility] Rx#:[id number] Oral 120 Output: Drainage 50 15 Distal Abdomen 50 15 Other: Voiding Method Toilet Toilet # Voids 2 2 - Constitutional General appearance: Present: average body habitus - Respiratory Details: Decreased at bases bilaterally - Cardiovascular Rhythm: regular Heart sounds: normal: S1, S2 - Gastrointestinal Gastrointestinal Comment(s): Incision clean and dry REYNA drain serous fluid - Psychiatric Psychiatric: Present: A&O x's 3, appropriate affect, intact judgment & insight - Labs CBC & Chem 7: 10/21/17 07:10 10/21/17 07:10 Labs: Abnormal Lab Results - Last 24 Hours (Table) 10/21/17 10/21/17 10/22/17 Range/Units 16:50 17:59 00:41 POC Glucose (mg/dL) 73 L 109 H (75-99) mg/dL Urine Ketones 3+ H (Negative) Urine Blood Trace H (Negative) Urine Mucus Rare H (None) /hpf Microbiology - Last 24 Hours (Table) 10/19/17 15:40 Gram Stain - Final Appendix Wound Culture - Final 10/19/17 15:40 Anaerobic Culture - Preliminary Appendix Assessment and Plan Assessment: Impression/plan: 1. 57-year-old black female with a distal high-grade small bowel obstruction, postoperative day #3 lysis of adhesions 2. Patient is having bowel activity 3. Will start clear liquid diet
--- NOTE | 2017-10-22 16:18 | P.PN ---
Subjective Principal diagnosis: Small bowel obstruction Patient is a 57-year-old female with a known history of diabetes mellitus, hypertension and surgical history including hysterectomy who initially presented to the ED and was thought to have acute gastroenteritis, sent home however symptomatically worsened. Patient return was found to have a small bowel obstruction, NG tube placed and surgery consulted. Patient underwent expiratory laparotomy on 10/19/2017 showing adhesive bands with high-grade small bowel obstruction, underwent lysis of adhesions and appendectomy. Patient seen and examined laying in bed comfortably, reports having bowel movement. NG now removed. Pain control. No fever or chills. No nausea or vomiting. Objective - Vital Signs Vital signs: Vital Signs Temp 98.6 F 10/22/17 14:19 Pulse 83 10/22/17 14:19 Resp 16 10/22/17 14:19 BP 156/80 10/22/17 14:19 Pulse Ox 98 10/22/17 14:19 Intake & Output 10/21/17 10/22/17 10/22/17 18:59 06:59 18:59 Intake Total 600 1570 900 Output Total 50 15 Balance 550 1555 900 Weight 48.534 kg Intake: Intake, IV Titration 600 1450 600 Amount Sodium Chloride 0.9% 1, 600 1450 600 000 ml @ 75 mls/hr IV . [id number] MARÍA ELENA Rx#:[id number] Oral 120 300 Output: Drainage 50 15 Distal Abdomen 50 15 Other: Voiding Method Toilet Toilet # Voids 2 2 2 - Exam General: A/O x 3, NAD, Lying in bed comfortably HEENT: EOMI, MMM, atraumatic normocephalic Neck: Supple. No JVD, trachea midline CVS: Regular rate and rhythm. + S1/S2, no murmurs/gallops/rubs Respiratory: Bilateral air entry noted. Clear to auscultation, no wheeze, no rhonchi Abdomen: Soft, nontender, nondistended. Bowel sounds heard Extremities: No lower extremity edema. No clubbing or cyanosis Skin: No rash or skin change noted Psych: Without hallucinations, abnormal affect, or abnormal behaviors during the examination - Labs CBC & Chem 7: 10/21/17 07:10 10/21/17 07:10 Labs: Abnormal Lab Results - Last 24 Hours (Table) 10/21/17 10/21/17 10/22/17 Range/Units 16:50 17:59 00:41 POC Glucose (mg/dL) 73 L 109 H (75-99) mg/dL Urine Ketones 3+ H (Negative) Urine Blood Trace H (Negative) Urine Mucus Rare H (None) /hpf Microbiology - Last 24 Hours (Table) 10/19/17 15:40 Gram Stain - Final Appendix Wound Culture - Final 10/19/17 15:40 Anaerobic Culture - Preliminary Appendix Assessment and Plan (1) Small bowel obstruction Current Visit: Yes Status: Acute Code(s): K56.609 - UNSP INTESTNL OBST, UNSP TO PARTIAL VERSUS COMPLETE OBST SNOMED Code(s): 051604213 (2) Hypertension Current Visit: Yes Status: Acute Code(s): I10 - ESSENTIAL (PRIMARY) HYPERTENSION SNOMED Code(s): 85945033 (3) Type 2 diabetes mellitus Current Visit: Yes Status: Acute Code(s): E11.9 - TYPE 2 DIABETES MELLITUS WITHOUT COMPLICATIONS SNOMED Code(s): 37555755 Plan: 1. Small bowel obstruction 2. Postop day #2 lysis of adhesions, appendectomy 3. Diabetes mellitus type 2 4. History of hysterectomy Postop day #3 lysis of adhesions, appendectomy. Surgery following. NG tube was clamped, patient had a bowel movement this morning. NG tube now removed. Advance to clear liquid diet. Encouraged to continue ambulating. Advance diet as tolerated. Patient's blood glucose today is more controlled, monitoring and sliding scale. Heparin for DVT prophylaxis.
[2017-10-22] MEDS: SODIUM CHLORIDE 0.9% 1,000 ML IV SCH ×2 (16:30→16:33)
[2017-10-22 17:44] LABS: Glucose,Whole Blood 66 mg/dL (75-99)
[2017-10-22 18:20] LABS: Glucose,Whole Blood 108 mg/dL (75-99)
[2017-10-22 20:03] VITALS: PULSE 80
[2017-10-22 20:15] LABS: Glucose,Whole Blood 86 mg/dL (75-99)
[2017-10-23] MEDS: HEPARIN SODIUM,PORCINE 5,000 UNIT/ML 1 ML VIAL SQ SCH ×2 (00:19→08:39)
[2017-10-23 07:24] LABS: Glucose,Whole Blood 78 mg/dL (75-99)
[2017-10-23 07:35] VITALS: BP 150/88; RESP 18; TEMP 98.6
[2017-10-23] MEDS: INSULIN ASPART 100 UNIT/ML 1 ML 10 ML VIAL SQ SCH (08:40)
[2017-10-23] MEDS: PANTOPRAZOLE 40 MG/10 ML VIAL IV SCH (08:40)
--- NOTE | 2017-10-23 10:12 | P.PN ---
Subjective Progress Note Date: 10/23/17 Patient is postop day #4 ambulating without difficulty Tolerating clear liquids Patient is not complaining of abdominal pain Objective - Vital Signs Vital signs: Vital Signs Temp 98.6 F 10/23/17 07:00 Pulse 80 10/23/17 07:00 Resp 18 10/23/17 07:00 BP 150/88 10/23/17 07:00 Pulse Ox 96 10/23/17 07:00 Intake & Output 10/22/17 10/23/17 10/23/17 18:59 06:59 18:59 Intake Total 900 1443 100 Output Total 15 15 0 Balance 885 1428 100 Intake: Intake, IV Titration 600 993 Amount Sodium Chloride 0.9% 1, 600 993 000 ml @ 75 mls/hr IV . [id number] MARÍA ELENA Rx#:[id number] Oral 300 450 100 Output: Drainage 15 15 0 Distal Abdomen 15 15 0 Stool 0 0 Other: Voiding Method Toilet Toilet # Voids 2 3 # Bowel Movements 2 # Emeses 0 - Constitutional General appearance: Present: average body habitus - Respiratory Respiratory: bilateral: CTA - Cardiovascular Rhythm: regular Heart sounds: normal: S1, S2 - Gastrointestinal Gastrointestinal Comment(s): Incision clean and dry REYNA drainage serous - Psychiatric Psychiatric: Present: A&O x's 3, appropriate affect, intact judgment & insight - Labs CBC & Chem 7: 10/21/17 07:10 10/21/17 07:10 Labs: Abnormal Lab Results - Last 24 Hours (Table) 10/22/17 10/22/17 Range/Units 17:24 18:18 POC Glucose (mg/dL) 66 L 108 H (75-99) mg/dL Assessment and Plan Assessment: Impression/plan: 1. 57-year-old black female with a distal high-grade small bowel obstruction, postoperative day #4 lysis of adhesions 2. Patient is having bowel activity 3. Will advance diet if tolerates will discharge home
--- NOTE | 2017-10-23 10:16 | P.DS ---
Providers Date of admission: 10/17/17 00:58 Attending physician: Mono Leong MD Consults: 10/17/17 01:00 Consult Physician Routine Consulting Provider: Janneth Brown Consult Reason/Comments: SBO Do you want consulting provider notified?: Yes, Notify in am Primary care physician: Stated None Patient Condition at Discharge: Good Plan - Discharge Summary Discharge Rx Participant: No New Discharge Prescriptions: No Action Dicyclomine [Bentyl] 20 mg PO TID #30 tablet Ibuprofen [Motrin] 600 mg PO Q8HR PRN #30 tab PRN Reason: Pain Ondansetron Odt [Zofran Odt] 4 mg PO Q8HR PRN #10 tab PRN Reason: Nausea Discharge Medication List Dicyclomine [Bentyl] 20 mg PO TID #30 tablet 10/14/17 [Rx] Ibuprofen [Motrin] 600 mg PO Q8HR PRN #30 tab 10/14/17 [Rx] Ondansetron Odt [Zofran Odt] 4 mg PO Q8HR PRN #10 tab 10/14/17 [Rx] Follow up Appointment(s)/Referral(s): None,Stated [Primary Care Provider] - 1-2 days Janneth Brown MD [STAFF PHYSICIAN] - 1 Week Activity/Diet/Wound Care/Special Instructions: Do not drive until seen by Dr. Levine Do not lift over 10 pounds Discharge Disposition: HOME SELF-CARE
[2017-10-23] MEDS ORDERED: MORPHINE ORAL SOLN 10 MG/5 ML CUP PO PRN ×2 (11:04→11:05)
[2017-10-23 11:09] LABS: Glucose,Whole Blood 72 mg/dL (75-99)
--- NOTE | 2017-10-23 15:09 | P.PN ---
Progress Note - Text Progress Note Date: 10/23/17 Patient was discharged home by Dr. [facility]. Patient's chart was reviewed after discharge and she has had slightly elevated blood pressures during admission. She was contacted by our hospitalist RN and given information on [facility] and told she should follow-up to determine if she needs treatment of her hypertension as it may have been elevated due to pain postoperatively.
[2017-10-24] MEDS ORDERED: PANTOPRAZOLE 40 MG TABLET PO SCH (07:30)
== END 2017-10-23 13:40 | disposition home or self-care (01) | DRG 342 ==
LOC: EC 20:54 → 3SUR 10-17 00:58
PROVIDERS: ADMIT Family Medicine; ATTEND Family Medicine
PROC: 0DTJ0ZZ Resection of Appendix, Open Approach (ICD-10-PCS; principal; 2017-10-19 14:00)
DX: K56.51 Intestinal adhesions [bands], with partial obstruction (principal); K80.00 Calculus of gallbladder with acute cholecystitis without obstruction; E11.9 Type 2 diabetes mellitus without complications; I10 Essential (primary) hypertension; K52.9 Noninfective gastroenteritis and colitis, unspecified; Z79.1 Long term (current) use of non-steroidal anti-inflammatories (NSAID); Z79.899 Other long term (current) drug therapy; Z90.710 Acquired absence of both cervix and uterus; Z88.0 Allergy status to penicillin; Z88.2 Allergy status to sulfonamides; Z87.891 Personal history of nicotine dependence
CPT/HCPCS: 36415; 74019; 74177; 76705; 80048; 80053; 80076; 81001; 83036; 83605; 83690; 83735; 85025; 86850; 86900; 86901; 87070; 87075; 87205; 88302; 88304; 96361; 96374; 96375; 99285